=== PATIENT | male | born 1990 | race Caucasian/White ===

== ENCOUNTER 2023-06-09 09:50 | Emergency (ER) | payer MEDICAID, SELFPAY ==
[2023-06-09 09:55] VITALS: PULSE 88; RESP 16; TEMP 37.2; O2SAT 95; BMI 41.8
--- NOTE | 2023-06-09 10:04 | XR_ITS ---
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 CLINICAL INDICATION: 32 years Male CP FINDINGS: The cardiomediastinal silhouette and pulmonary vasculature are within normal limits. The lungs are clear. There is no evidence of pleural effusion or pneumothorax. XR/XR chest 1V IMPRESSION: Chest radiograph is within normal limits. Electronically authenticated by: KELVIN DELGADO Date: 06/09/2023 10:43
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
[2023-06-09 12:23] VITALS: BP 142/96; PULSE 88; RESP 18; O2SAT 95
== END 2023-06-09 12:25 | disposition home or self-care (01) ==
PROVIDERS: Emergency Provider Emergency Medicine
DX: J18.9 Pneumonia, unspecified organism (principal)
CPT/HCPCS: 71045; 71260; 94667; 99284; Q9967

== ENCOUNTER 2023-06-27 09:26 | Outpatient (OUT) | payer MEDICAID, SELFPAY ==
[2023-06-27 11:09] LABS: Valproic Acid 62.2 ug/mL (50.0-100.0)
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
== END 2023-06-27 09:27 | disposition home or self-care (01) ==
DX: G40.309 Generalized idiopathic epilepsy and epileptic syndromes, not intractable, without status epilepticus (principal)
CPT/HCPCS: 36415; 80164

== ENCOUNTER 2024-02-03 14:26 | Emergency (ER) | payer OTHER, MEDICAID, SELFPAY ==
[2024-02-03 14:34] VITALS: BP 150/100; PULSE 77; TEMP 36.9; O2SAT 96; BMI 37.0
--- NOTE | 2024-02-03 14:51 | ED.GENADUL1 ---
HPI HPI - General Adult General Chief complaint: Head Injury Stated complaint: HEADACHE, HIT IN HEAD WITH OBJECT Time Seen by Provider: 02/03/24 14:40 Source: patient Mode of arrival: walk-in Limitations: no limitations History of Present Illness HPI narrative: 33-year-old male to the emergency department with chief complaint of headache, fatigue, nausea. Patient reports that the symptoms started after he was struck in the head with a propane tank today at work while trying to set it up on a rack. He did not lose consciousness. No vision changes. No numbness, weakness, tingling. He reports severe headache which is worsened throughout the day. He reports fatigue. Nausea. The symptoms been worsening. He reports that he feels like he is not himself. No blood thinners. No neck pain. No other injuries. Related Data Home Medications ?Medication ?Instructions ?Recorded ?Confirmed divalproex 250 mg tablet,extended 250 mg PO DAILY 02/03/24 02/03/24 release 24 hr Allergies Allergy/AdvReac Type Severity Reaction Status Date / Time No Known Drug Allergies Allergy Verified 06/09/23 09:59 Opioid HPI Opioid Management Most Recent Opioid Data: Last Pain Scale 8 06/09/23 10:02 Review of Systems ROS Status of ROS 10 or more systems reviewed and unremarkable except as noted in history and below PFSH [facility] Social History Smoking status: Never smoker Exam Narrative Exam Narrative: VITALS: I have reviewed the triage vital signs. GENERAL: Well developed, well appearing adult in no acute distress. NEURO: Alert and oriented x4. Moves all extremities. Face is symmetric and expressive. Cranial nerves II through XII grossly intact as tested. Muscular strength and sensation grossly intact upper and lower extremities bilaterally. No dysarthria. No aphasia. No ataxia. Normal gait. NIHSS 0. EYES: PERRL. No scleral icterus or conjunctival injection. No discharge. HENT: Normocephalic, atraumatic. Hearing is grossly intact. Nares grossly patent and without discharge. Mucous membranes moist. NECK: No JVD. Patient moves neck without restriction. CARDIO: Rhythm regular. Normal rate. No murmur, rub, or gallop. Pulses equal bilaterally in the upper and lower extremity. No lower extremity edema. PULM: Lungs clear to auscultation in all wang. No wheezes, rales, or rhonchi. No conversational dyspnea. No splinting, stridor, or accessory muscle use. GI/: Abdomen is soft and non-tender. Normoactive bowel sounds. EXTREMITIES: Symmetric muscle bulk. No joint swelling. No clubbing, cyanosis, or deformity. SKIN: Warm and dry. Normal turgor. No rash or lesions appreciated. PSYCH: Mood, affect, and interaction is appropriate to the setting. Constitutional Vital Signs, click to edit/add: Last Vital Signs Temp 98.4 F 02/03/24 14:34 Pulse 77 02/03/24 14:34 Resp 18 02/03/24 14:34 BP 150/100 H 02/03/24 14:34 Pulse Ox 96 02/03/24 14:34 O2 Del Method Room Air 02/03/24 14:34 Course Vital Signs Vital signs: Vital Signs Temperature 98.4 F 02/03/24 14:34 Pulse Rate 77 02/03/24 14:34 Respiratory Rate 18 02/03/24 14:34 Blood Pressure 150/100 H 02/03/24 14:34 Pulse Oximetry 96 02/03/24 14:34 Oxygen Delivery Method Room Air 02/03/24 14:34 Temperature 98.4 F 02/03/24 14:34 Pulse Rate 77 02/03/24 14:34 Respiratory Rate 18 02/03/24 14:34 Blood Pressure 150/100 H 02/03/24 14:34 Pulse Oximetry 96 02/03/24 14:34 Oxygen Delivery Method Room Air 02/03/24 14:34 Medical Decision Making MDM Narrative Medical decision making narrative: 33-year-old male to the emergency department severe headache after head injury. Vital stable, the patient is afebrile. Neurologic examination is nonfocal. CT scan is ordered. He declines medications. [facility] #415 - Emergency Medicine: Utilization of CT for Minor Blunt Head Trauma (Adult) [x] Patient is 18 or older, presenting with minor blunt head trauma. Head CT (including cosigned orders) was ordered by an emergency manager critical care for trauma because (select one or more): [SATISFIES MIPS PERFORMANCE] Reasons: [x] Patient has severe headache Discharge Plan Discharge Stand Alone Forms: Portal Instructions Chief Complaint: Head Injury Clinical Impression: Concussion without loss of consciousness Patient Disposition: Home, Self-Care Condition: Good Mode of Transportation: Private Vehicle Prescriptions / Home Meds: No Action divalproex 250 mg tablet extended release 24 hr 250 mg PO DAILY Print Language: Citizen Of [place] Instructions: Concussion (ED) Additional Instructions: Follow-up with occupational health Call the office of your primary care doctor to arrange for follow-up within the above-stated timeframe. Your ED visit was focused on your acute issue and does not replace primary care. You should review your labs, imaging, and diagnoses from this ED visit with your primary care physician. There may be non-emergent/ incidental findings that need further evaluation. You should review your vital signs including blood pressure with your PCP. If you were prescribed medications you should discuss possible side-effects and drug interactions with your pharmacist. Call 911 or go to the nearest Emergency Department if you develop any new or worsening symptoms. Seek immediate medical attention if you develop: new or worsening headache, nausea, vomiting, confusion, weakness, loss of motion in your arms or legs, loss of control of your urine or stool, difficulty waking from sleep, or any new or worsening symptoms. Referrals: Physician,Non-Staff, MD [Primary Care Provider] - 1 week
--- NOTE | 2024-02-03 15:22 | CT_ITS ---
[address] [address] Patient Name: DIMITRIS DORADO MRN: [id number] date: 1990 Sex: M Assigned Patient Location: ER Current Patient Location: ED.[facility] Accession/Order Number: [id number] Exam Date: 02/03/2024 15:15 Report Date: 02/03/2024 15:56 At the request of: DANY UREÑA Procedure: CT head/brain wo con EXAM: CT head/brain wo con HISTORY: head injury COMPARISON: None. TECHNIQUE: Axial CT scans through the head were obtained without IV contrast administration. Dose reduction techniques were achieved by using: automated exposure control and/or adjustment of mA and /or kV according to patient size and/or use of iterative reconstruction technique. FINDINGS: There is no acute intracranial hemorrhage or abnormal extra-axial fluid collection. No mass effect or midline shift is seen. There is no evidence of large acute territorial infarction. There is no hydrocephalus. To the limit of CT, the posterior fossa appears unremarkable. The calvaria and extra cranial soft tissues are unremarkable. The visualized orbits show no abnormality. The visualized paranasal sinuses show no air-fluid level. Mastoid air cells are clear. CT/CT head/brain wo con IMPRESSION: No acute intracranial process. Electronically authenticated by: CINDY MCCULLOUGH Date: 02/03/2024 15:56
[2024-02-03 15:32] VITALS: BP 142/86; PULSE 86; O2SAT 98
== END 2024-02-03 16:11 | disposition home or self-care (01) ==
PROVIDERS: Emergency Provider Student in an Organized Health Care Education/Training Program
DX: S06.0X0A Concussion without loss of consciousness, initial encounter (principal); W22.8XXA Striking against or struck by other objects, initial encounter
CPT/HCPCS: 70450; 99284

== ENCOUNTER 2024-11-18 09:35 | Emergency (ER) | payer BC, MEDICAID, SELFPAY ==
[2024-11-18 09:40] VITALS: BP 158/97; PULSE 67; TEMP 36.8; O2SAT 99; BMI 32.8
--- NOTE | 2024-11-18 09:59 | ED.GENADUL1 ---
HPI HPI - General Adult General Chief complaint: Urogenital-Male Stated complaint: pain in groin area Time Seen by Provider: 11/18/24 09:45 Source: patient Mode of arrival: walk-in Limitations: no limitations History of Present Illness HPI narrative: Patient presents to ED complaining of left inguinal pain. Patient states it started about a month ago when he had a bad cough from an upper respiratory infection. He said it has been on and off since then and he can feel a lump there. He said usually he can push the lump back in but recently for about the past 5 days he cannot push it back in as well and it seems to come back out more frequently. He does have tenderness there and it is worse with up and walking around and in lifting. No fevers no vomiting. Patient states he does not have any testicular pain or upper abdominal pain. He just has the left inguinal pain where you can feel the possible hernia. No history of hernia Related Data Home Medications ?Medication ?Instructions ?Recorded ?Confirmed No Known Home Medications 11/18/24 11/18/24 Allergies Allergy/AdvReac Type Severity Reaction Status Date / Time No Known Drug Allergies Allergy Verified 06/09/23 09:59 Opioid HPI Opioid Management Most Recent Opioid Data: Last Pain Scale 8 06/09/23, 10:02 Review of Systems ROS Status of ROS 10 or more systems reviewed and unremarkable except as noted in history and below [facility] Social History Smoking status: Never smoker Little interest or pleasure in doing things: not at all Feeling down, depressed, or hopeless: not at all Exam Narrative Exam Narrative: General: alert, no acute distress Cardiovascular: regular rate and rhythm, normal peripheral perfusion. Respiratory: Lungs CTA, respirations non labored. Extremities: no deformity, no trauma. Neurological: oriented x 4, LOC appropriate for age. Abdomen soft nontender nondistended. Patient does have a palpable small hernia felt in the left inguinal area that is reducible. Does cause pain when reducing and it does come back out as soon as the patient stands up. No testicular pain normal external genitalia Constitutional Vital Signs, click to edit/add: Last Vital Signs Temp 98.2 F 11/18/24 09:40 Pulse 66 11/18/24 11:14 Resp 16 11/18/24 11:14 BP 133/85 11/18/24 11:14 Pulse Ox 99 11/18/24 11:14 O2 Del Method Room Air 11/18/24 09:40 Course Vital Signs Vital signs: Vital Signs Temperature 98.2 F 11/18/24 09:40 Pulse Rate 67 11/18/24 09:40 Respiratory Rate 18 11/18/24 09:40 Blood Pressure 158/97 H 11/18/24 09:40 Pulse Oximetry 99 11/18/24 09:40 Oxygen Delivery Method Room Air 11/18/24 09:40 Temperature 98.2 F 11/18/24 09:40 Pulse Rate 66 11/18/24 11:14 Respiratory Rate 16 11/18/24 11:14 Blood Pressure 133/85 11/18/24 11:14 Pulse Oximetry 99 11/18/24 11:14 Oxygen Delivery Method Room Air 11/18/24 09:40 Medical Decision Making MDM Narrative Medical decision making narrative: Patient's labs are negative for acute. He does not have any UTI symptoms. His CT scan shows a fat-containing inguinal hernia on the left. I called and spoke to Dr. Isabel who agrees with outpatient follow-up. I told the patient to call the office today to schedule close follow-up. Return to ED if worsening symptoms severe pain vomiting severe constipation or any other concerns. Patient is comfortable with care plan for home. Differential Diagnosis Differential Diagnosis: Hernia, bowel obstruction Lab Data Lab results reviewed: Yes I reviewed the patient's lab results Labs: Lab Results 11/18/24 11/18/24 Range/Units 10:09 10:23 WBC 6.9 (4.0-11.0) 10^3/uL RBC 5.23 (4.70-6.10) 10^6/uL Hgb 16.9 (14.0-18.0) g/dL Hct 46.8 (42.0-54.0) % MCV 89.5 (80.0-94.0) fL MCH 32.3 (25.9-34.0) pg MCHC 36.1 H (29.9-35.2) g/dL RDW 12.0 (11.0-15.0) % Plt Count 355 (150-450) 10^3/uL MPV 9.7 (9.5-13.5) fL Neut % (Auto) 57.6 (43.0-75.0) % Lymph % (Auto) 31.3 (20.5-60.0) % [place] % (Auto) 8.2 (1.7-12.0) % Eos % (Auto) 2.0 (0.9-7.0) % Baso % (Auto) 0.6 (0.2-2.0) % Neut # (Auto) 4.0 (1.4-6.5) 10^3/uL Lymph # (Auto) 2.2 (1.2-3.8) 10^3/uL [place] # (Auto) 0.6 (0.3-0.8) 10^3/uL Eos # (Auto) 0.1 (0.0-0.7) 10^3/uL Baso # (Auto) 0.0 (0.0-0.1) 10^3/uL Abs Immat Gran (auto) 0.02 (0.00-0.03) 10^3/uL Imm/Tot Granulo (auto) 0.3 (0.0-0.5) % Sodium 141 (136-145) mmol/L Potassium 4.0 (3.5-5.1) mmol/L Chloride 102 (98-107) mmol/L Carbon Dioxide 29.1 (21.0-32.0) mmol/L Anion Gap 13.9 BUN 13.0 (7.0-18.0) mg/dL Creatinine 0.58 L (0.70-1.30) mg/dL Est GFR ( Amer) >60 (>=60 mL/min/1.73m^2) Est GFR (Non-Af Amer) >60 (>=60 mL/min/1.73m^2) BUN/Creatinine Ratio 22.4 Glucose 85 (74-106) mg/dL Lactate 1.2 (0.4-2.0) mmol/L Calcium 9.3 (8.5-10.1) mg/dL Total Bilirubin 0.5 (0.2-1.0) mg/dL AST 17 (15-37) U/L ALT 28 (16-63) U/L Alkaline Phosphatase 46 (46-116) U/L Total Protein 7.4 (6.4-8.2) g/dL Albumin 3.8 (3.4-5.0) g/dL Globulin 3.6 g/dL Albumin/Globulin Ratio 1.1 Urine Color Yellow (YELLOW) Urine Clarity Clear (CLEAR) Urine pH 7.0 (5.0-9.0) Ur Specific Grace 1.015 (1.005-1.025) Urine Protein Negative (NEG/TRACE) mg/dL Urine Glucose (UA) Negative (NEGATIVE) mg/dL Urine Ketones 15 A (NEGATIVE) mg/dL Urine Occult Blood Negative (NEGATIVE) Urine Nitrite Negative (NEGATIVE) Urine Bilirubin Negative (NEGATIVE) Urine Urobilinogen 2.0 A (0.2-1.0) EU/dL Ur Leukocyte Esterase Negative (NEGATIVE) Urine RBC 0-2 (0-2) #/HPF Urine WBC 2-5 A (NONE SEEN) #/HPF Ur Squamous Epith Cells Rare (NONE/RARE) #/LPF Urine Crystals None seen (None Seen) #/HPF Urine Bacteria Trace A (NONE SEEN) #/HPF Urine Casts None seen (NONE SEEN) #/LPF Urine Mucus Moderate A (NONE SEEN) Ur Culture Indicated? No Discharge Plan Discharge Chief Complaint: Urogenital-Male Clinical Impression: Inguinal hernia Patient Disposition: Home, Self-Care Time of Disposition Decision: 11:24 Condition: Good Mode of Transportation: Private Vehicle Prescriptions / Home Meds: No Action No Known Home Medications Print Language: Bulgarian Instructions: Inguinal Hernia (ED) Additional Instructions: F/U with general surgery and with your family doctor Referrals: Huang Lane MD [Physician, General Surgery] - 1 week Physician,Non-Staff, [Primary Care Provider] - 1 week
[2024-11-18 10:30] LABS: Basophils Percent Auto 0.6 % (0.2-2.0); Eosinophils Absolute Auto 0.1 10^3/uL (0.0-0.7); Hematocrit 46.8 % (42.0-54.0); Hemoglobin 16.9 g/dL (14.0-18.0); Immature Granulocytes Abs Auto 0.02 10^3/uL (0.00-0.03); Immature Granulocytes Pct Auto 0.3 % (0.0-0.5); Lymphocytes Absolute Auto 2.2 10^3/uL (1.2-3.8); Lymphocytes Percent Auto 31.3 % (20.5-60.0); Mean Corpuscular HGB Conc 36.1 g/dL (29.9-35.2); Mean Corpuscular Hemoglobin 32.3 pg (25.9-34.0); Mean Corpuscular Volume 89.5 fL (80.0-94.0); Mean Platelet Volume 9.7 fL (9.5-13.5); Monocytes Absolute Auto 0.6 10^3/uL (0.3-0.8); Monocytes Percent Auto 8.2 % (1.7-12.0); Neutrophils Percent Auto 57.6 % (43.0-75.0); Platelet Count 355 10^3/uL (150-450); Red Blood Count 5.23 10^6/uL (4.70-6.10); White Blood Count 6.9 10^3/uL (4.0-11.0)
[2024-11-18 10:32] LABS: Bilirubin Urine NEGATIVE (NEGATIVE); Blood Urine NEGATIVE (NEGATIVE); Clarity Urine CLEAR (CLEAR); Color Urine YELLOW (YELLOW); Glucose Urine UA NEGATIVE (NEGATIVE); Ketones Urine 15 mg/dL (NEGATIVE); Leukocyte Esterase Urine NEGATIVE (NEGATIVE); Nitrite Urine NEGATIVE (NEGATIVE); Protein Urine NEGATIVE (NEG/TRACE); Specific Gravity Urine 1.015 (1.005-1.025)
[2024-11-18 10:49] LABS: RBC Urine 0-2 #/HPF (0-2)
[2024-11-18 10:50] LABS: Bacteria Urine TRACE #/HPF (NONE SEEN); Cast Seen? NONE SEEN #/LPF (NONE SEEN); Crystals Seen? None Seen #/HPF (None Seen); Mucus Urine MODERATE (NONE SEEN); Squamous Epithelial Cell Urine RARE #/LPF (NONE/RARE); Urine Culture Indicated NO
[2024-11-18 10:51] LABS: Lactate/Lactic Acid 1.2 mmol/L (0.4-2.0)
[2024-11-18 10:57] LABS: Alanine Aminotransferase 28 U/L (16-63); Albumin Globulin Ratio 1.1; Albumin Level 3.8 g/dL (3.4-5.0); Alkaline Phosphatase 46 U/L (46-116); Anion Gap 13.9; Aspartate Amino Transferase 17 U/L (15-37); BUN Creatinine Ratio 22.4; Bilirubin Total 0.5 mg/dL (0.2-1.0); Calcium 9.3 mg/dL (8.5-10.1); Carbon Dioxide 29.1 mmol/L (21.0-32.0); Chloride 102 mmol/L (98-107); Estimated GFR (African America >60 (>=60 mL/min/1.73m^2); Estimated GFR (Non-African Ame >60 (>=60 mL/min/1.73m^2); Globulin 3.6 g/dL; Glucose 85 mg/dL (74-106); Sodium 141 mmol/L (136-145); Total Protein 7.4 g/dL (6.4-8.2)
[2024-11-18 11:14] VITALS: BP 133/85; PULSE 66; O2SAT 99
== END 2024-11-18 11:42 | disposition home or self-care (01) ==
PROVIDERS: Emergency Provider Emergency Medicine
DX: K40.90 Unilateral inguinal hernia, without obstruction or gangrene, not specified as recurrent (principal)
CPT/HCPCS: 36415; 74177; 80053; 81001; 83605; 85025; 99284; Q9967

== ENCOUNTER 2024-11-30 12:21 | Outpatient (OUT) | payer BC, MEDICAID, SELFPAY | END 2024-11-30 12:22 | disposition home or self-care (01) | LOC: PST 12:22 | PROVIDERS: Visit Provider Surgery | DX: Z01.818 Encounter for other preprocedural examination (principal); K40.90 Unilateral inguinal hernia, without obstruction or gangrene, not specified as recurrent ==

== ENCOUNTER 2024-12-09 07:06 | Day surgery (SDC) | payer BC, MEDICAID, SELFPAY ==
--- OUTSIDE RECORDS SUMMARY | 2024-04-21 05:05 | XMS_ITS | Encounter Summary ---
Author Name [facility] [facility] [place] Address [address] [place] [id number] Care Team Providers Care Fancy Wire Drawer Name Role Phone LA WITT Primary Care Provider Unavailluis e Insurance Providers: All historical and current Section Date Range: From patient's date of to the date document was created. This section includes the names of all active insurance providers for the patient. Insurance Provider Type of Coverage Plan Name Start of Policy Coverage End of Policy Coverage Group Number Member ID Insurance Provider's Telephone Number Policy Ling's Name Patient's Relationship to Policy Ling MEDICAID (WNR) MEDICAID MEDIC AID Oct 20, 2022 MEDICAI D [id number] Kerline DORADO PATIENT Selected Encounter This section includes the information on record at [place] for the Encounter. Date/Time Encounter Type Encounter Description Reason Provider Source Apr 21, 2024 09:05 AM QNHP OL DIG ASSMT&MGMT 11-20 CLINICAL PHARMACY ICD-10-CM E66.9 Obesity, unspecified LUIS CARLOS FOSTER Encounter Template Text not used by [place] Assessments - Encounter Diagnoses This section includes the primary and secondary diagnoses documented for the Encounter. Date/Time Primary/Secondary Diagnosis Diagnosis Name Provider Source Apr 21, 2024 09:13 AM PRIMARY Obesity, unspecified LUIS CARLOS FOSTER [facility] Plan of Treatment: Future Appointments (+ 6 months) and Future Tests (+/- 45 days) The Plan of Treatment section includes future care activities for the patient from all [facility] treatment[facility]ilities. This section includes future appointments and future orders which are active, pending or scheduled. Future Appointments This section includes appointments that were scheduled to occur 6 months from the date of the Encounter, up to a maximum of 20 appointments. The data comes from all [place] treatment facilities. Appointment Date/Time Appointment Type Appointme nt Facility Name Apr 27, 2024 08:00 AM AMBULATORY - NONE [facility] Jun 22, 2024 01:00 PM AMBULATORY - NEUROLOGY [facility] Jun 29, 2024 08:00 AM AMBULATORY - NONE [facility] Jun 29, 2024 09:15 AM AMBULATORY - NONE [facility] Sep 16, 2024 09:00 AM AMBULATORY - NONE [facility] Sep 25, 2024 08:00 AM AMBULATORY - NONE [facility] Oct 19, 2024 04:15 PM AMBULATORY - NONE [facility] Lab Results: +/- 30 days of the encounter This section includes the Chemistry and Hematology Lab Results on record with [facility] for the patient. Radiology Reports and Pathology Reports are provided separately, in subsequent sections. Lab Results This section contains the Chemistry/Hematology Results that were resulted 30 days before or 30 daysafter the date of the Encounter. Date/Time Source Result Type Result - Unit Interpretation Reference Range Specimen Type Comment Apr 27, 2024 08:05 AM [facility] URINALYSIS URINE Specimen Type: URINE No comment entered. Ordering Provider: LA WITT Report Released Date/Time: May 01, 2023 08:58 AM Reporting Lab: [address] [address] Performing Lab: [address] [address] SPECIFIC GRAVITY >1.035 H 1.016-1.022 URINE GLUCOSE Negative mg/dL Negative URINE PROTEIN 20 mg/dL Negative URINE PH 6.0 5.0-8.0 WBC/HPF 1 /[HPF] <=4 RBC/HPF 1 /[HPF] <=4 NITRITE, URINE Negative Negative ESTERASE(WBC) Negative Negative URINE CLARITY Clear Clear URINE MUCUS Present H Negative URINE BILIRUBIN Negative mg/dL <=0.4 URINE BLOOD Negative mg/dL <0.05 UROBILINOGEN 4 mg/dL H <=1 URINE KETONES 10 mg/dL H <=9 URINE COLOR Yellow [none] Apr 27, 2024 08:05 AM [facility] COMPREHENSIVE METABOLIC PANEL PLASMA S pecimen Type: PLASMA Comment: DLDLREF RANGE: NEAR OR ABOVE OPTIMAL: 100-129 mg/dL BORDERLINE DLDLHIGH: 130-159 mg/dL HIGH: 160-189 mg/dL VERY HIGH: >=190 TRIG REF RANGE: BORDERLINE HIGH: 150-199 mg/dL HIGH: 200-499 mg/dL TRIG VERY HIGH: >=500 mg/dL CREA eGFR was calculated using the CKD-EPI 2020 equation. CHOL REF RANGE: BORDERLINE HIGH: 200-239 mg/dL HIGH: >=240 mg/dL Ordering Provider: LA WITT Report Released Date/Time: May 01, 2023 08:58 AM Reporting Lab: [address] [address] Performing Lab: [address] [address] ALBUMIN 4.3 g/dL 3.5-5.2 ALKALINE PHOSPHATASE 36 U/L L 40-150 ALT/SGPT 39 U/L <55 AST/SGOT 27 U/L 5-34 BUN 11 mg/dL 8.9-20.6 CALCIUM 8.7 mg/dL 8.4-10.2 CREATININE 0.8 mg/dL 0.72-1.25 CO2 26 mmol/L 22-29 GLUCOSE 103 mg/dL H 74-100 PROTEIN, TOTAL 7.2 g/dL 6.4-8.3 SODIUM 140 mmol/L 136-145 CHLORIDE 103 mmol/L 98-107 BILIRUBIN, TOTAL 0.6 mg/dL 0.2-1.2 POTASSIUM 4.2 mmol/L 3.5-5.1 ANION GAP 15.2 mmol/L 10-20 EGFR (CALCULATED) 119.0 mL/min Apr 27, 2024 08:05 AM [facility] VALPROIC ACID PLASMA Specimen Type: P LASMA Comment: DLDLREF RANGE: NEAR OR ABOVE OPTIMAL: 100-129 mg/dL BORDERLINE DLDLHIGH: 130-159 mg/dL HIGH: 160-189 mg/dL VERY HIGH: >=190 TRIG REF RANGE: BORDERLINE HIGH: 150-199 mg/dL HIGH: 200-499 mg/dL TRIG VERY HIGH: >=500 mg/dL CREA eGFR was calculated using the CKD-EPI 2020 equation. CHOL REF RANGE: BORDERLINE HIGH: 200-239 mg/dL HIGH: >=240 mg/dL Ordering Provider: LA WITT Report Released Date/Time: May 01, 2023 08:58 AM Reporting Lab: [address] [address] Performing Lab: [address] [address] VALPROIC ACID 113.9 ug/mL H 50.0-100.0 Apr 27, 2024 08:05 AM [facility] LIPID PROFILE PLASMA Specimen Type: P LASMA Comment: DLDLREF RANGE: NEAR OR ABOVE OPTIMAL: 100-129 mg/dL BORDERLINE DLDLHIGH: 130-159 mg/dL HIGH: 160-189 mg/dL VERY HIGH: >=190 TRIG REF RANGE: BORDERLINE HIGH: 150-199 mg/dL HIGH: 200-499 mg/dL TRIG VERY HIGH: >=500 mg/dL CREA eGFR was calculated using the CKD-EPI 2020 equation. CHOL REF RANGE: BORDERLINE HIGH: 200-239 mg/dL HIGH: >=240 mg/dL Ordering Provider: LA WITT Report Released Date/Time: May 01, 2023 08:58 AM Reporting Lab: [address] [address] Performing Lab: [address] [address] CHOLESTEROL 184 mg/dL <199 LDL CHOLESTEROL 158 mg/dL H <99 HDL CHOLESTEROL 33 mg/dL L >60 TRIGLYCERIDE 99 mg/dL <149 Apr 27, 2024 08:05 AM [facility] HEMOGLOBIN A1C BLOOD Specimen Type: B LOOD Comment: Values obtained from A1C measurements can vary. For typical A1C assays, a reported value of 7.0 could actually be between 6.72 and 7.28 if measured by a reference method. A reported value of 9.0 could actually be between 8.73 and 9.27. Ref: http://www.ngsp.org/CAPdata.asp Ordering Provider: LA WITT Report Released Date/Time: May 01, 2023 08:58 AM Reporting Lab: [address] [address] Performing Lab: [address] [address] HEMOGLOBIN A1C 4.8 3.6-5.7 Apr 27, 2024 08:05 AM [facility] CBC BLOOD Specimen Type: BLOOD No comment entered. Ordering Provider: LA WITT Report Released Date/Time: May 01, 2023 08:58 AM Reporting Lab: [facility] [address] [facility] [address] Performing Lab: [address] [address] WBC COUNT 6.5 10*3/uL 3.6-11.0 RBC COUNT 5.15 10*6/uL 4.47-5.83 HGB 16.2 g/dL 13.6-17.4 HCT 48.1 40.0-51.0 MCV 93.4 fL 80.0-96.0 MCH 31.5 pg H 27.0-31.0 MCHC 33.8 g/dL 31.5-36.5 PLT 348 10*3/uL 150-400 LYMPHS % 48.8 21.0-51.0 MONOCYTES % 5.2 4.0-8.0 NUCLEATED RBC/100WBC 0.2 /100{WBCs} RDW 13.3 11.2-15.8 NEUTROPHIL % 42.8 L 54.0-78.0 EOSINOPHIL % 2.9 0.0-3.0 BASOPHIL % 0.3 0.0-3.0 ABSOLUTE LYMPHOCYTE COUNT 3.2 10*3/uL 0. 8-5.0 ABSOLUTE NEUTROPHIL COUNT 2.8 10*3/uL 1. 9-8.6 ABSOLUTE BASOPHIL COUNT 0.0 10*3/uL 0.0- 0.3 ABSOLUTE MONOCYTE COUNT 0.3 10*3/uL 0.1- 0.9 ABSOLUTE EOSINOPHIL COUNT 0.2 10*3/uL 0. 0-0.3 MPV 8.3 fL 7.4-11.4 Encounter Notes: All associated encounter notes This section contains the clinical notes associated to the Encounter. Date/Time Encounter Note(s) Provider Source Apr 21, 2024 09:05 AM PHARMACY CONSULT: LOCAL TITLE: PRIOR AUTHORIZATION DRUG REQUEST CONSULT NOTE (C) STANDARD TITLE: PHARMACY CONSULT DATE OF NOTE: APR 21, 2024@09:05 ENTRY DATE: APR 21, 2024@09:05:53 AUTHOR: LUIS CARLOS FOSTER EXP COSIGNER: URGENCY: STATUS: COMPLETED 3. Denied, specify alternative The medical record has been reviewed with regard to this prior authorization drug request. This prior authorization drug request originated with a [facility] provider. Medication requested: SEMAGLUTIDE WL 1MG/0.5ML PEN 0.5ML Medication indication: obesity Medical history relevant to this request: Mr. Dorado was referred to Endocrinology services for weight loss management. They have been active in [facility] [employer] and their current weight/BMI is [270 lbs/37.7]. CC OVN [04/18/24] in [facility] was reviewed, and provider plan is to start Wegovy. Currently Wegovy is being approved for use in veterans who meet both general VA CFU and tiered criteria 1 and 2a per [place] [employer] guidance. General CFU: The answers to ALL of the following must be fulfilled in order to meet criteria for semaglutide (WEGOVY). {X} Verifiable participation in a comprehensive lifestyle intervention (CLI) that targets all three aspects of weight management: diet, physical activity, behavioral changes {X} BMI is greater than or equal to 30 kg/m2 OR BMI is greater than or equal to 27 kg/m2 with at least one weight-related comorbidity Additional Inclusion Criteria - In addition to meeting the above two inclusion criteria, the answer to ONE of the following must be fulfilled to meet criteria for semaglutide (WEGOVY). {X} One or more [place] National Formulary agents for chronic weight management at therapeutic or maximally tolerated doses are documented to be not tolerated, not adequate (e.g., < 5 % reduction body weight), or medically inadvisable (with rationale) Per December note, 30 minutes spent in patient education counseling on the phentermine as patient is on Depakote and Mar note Wegovy 0.5 mg once a week has lost 7 pounds over 3 months wants to increase the dose BMI 37 { } BMI greater than or equal to 40 { } BMI 35 to < 40 with a significant or difficult to manage weight-related condition or is unable to achieve weight loss goals required for surgery { } BMI 27 to < 40 with previous myocardial infarction, previous stroke, or symptomatic peripheral arterial disease { } Type 2 diabetes treated with semaglutide (OZEMPIC) AND requires additional weight loss to achieve >=5% reduction in initial body weight Tiered criteria: { } Tier 1: established cardiovascular disease defined as hx of myocardial infarction, coronary artery disease, stroke hx or symptomatic PAD { } Tier 2: Patients with BMI >35 AND 3 disease related comorbidities or HFpEF only comorb noted is seizure disorder Examples of weight-related conditions include (but are not limited to) hypertension, type 2 diabetes, dyslipidemia, metabolic syndrome, obstructive sleep apnea, osteoarthritis, and metabolic dysfunction-associated steatotic liver disease (MASLD). As patient does not meet tier requirements, denial notice sent to provider with recommendation to consider formulary alternatives: phentermine/topiramate, orlistat (with continued participation of [employer] prgm. The request does not meet criteria - Compelling evidence for the requested indication is lacking Time spent on encounter = 20 minutes /kassandra/ LUIS CARLOS FOSTER, PHARM.D. CLINICAL PHARMACIST Signed: 04/21/2024 09:14 LUIS CARLOS FOSTER [facility]
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
--- OUTSIDE RECORDS SUMMARY | 2024-06-29 04:00 | XMS_ITS | Encounter Summary ---
Author Name [facility] [place] Organization [facility] [place] Address [address] [place] [address] Care Team Providers Care Blueprint Processor Name Role Phone LA WITT Primary Care [...] MEDIC AID Oct 20, 2022 MEDICAI D [id number] Kerline DORADO PATIENT Selected Encounter This section includes the information on record at [place] for the Encounter. Date/Time Encounter Type Encounter Description Reason Provider Source Jun 29, 2024 08:00 AM OFFICE O/P EST MOD 30 MIN PRIMARY CARE/MEDICINE ICD-10-CM Z23 Encounter for immunization SHAQ WITT Encounter Template Text not used by [facility] Assessments - Encounter Diagnoses This section includes the primary and secondary diagnoses documented for the Encounter. Date/Time Primary/Secondary Diagnosis Diagnosis Name Provider Source Jun 29, 2024 08:29 AM PRIMARY Encounter for immunization [facility]EL[facility] MCKENZ[facility] Jun 29, 2024 08:29 AM SECONDARY Obesity, unspecified LA WITT [facility] Jun 29, 2024 08:29 AM SECONDARY Other seizures LA WITT [facility] Plan of Treatment: Future Appointments (+ 6 months) and Future Tests (+/- 45 days) The Plan of Treatment section includes future care activities for the [facility] This section includes future appointments and future orders which are active, pending or scheduled. Future Appointments This section includes appointments that were scheduled to occur 6 months from the date of the Encounter, up to a maximum of 20 appointments. The data comes from all [place] treatment facilities. Appointment Date/Time Appointment Type Appointme nt Facility Name Sep 16, 2024 09:00 AM AMBULATORY - NONE [facility] Sep 25, 2024 08:00 AM AMBULATORY - NONE [facility] Oct 19, 2024 04:15 PM [facility] Oct 21, 2024 09:00 AM AMBULATORY - NONE [facility] Nov 10, 2024 02:00 PM AMBULATORY - NONE [facility] December 09, 2024 08:30 AM [facility] Dec 23, 2024 08:30 AM AMBULATORY - NONE [facility] Lab Results: +/- 30 days of the encounter This section includes the Chemistry and Hematology Lab Results on record with [place] for the patient. Radiology Reports and Pathology Reports are provided separately, in subsequent sections. Lab Results This section contains the Chemistry/Hematology Results that were resulted 30 days before or 30 daysafter the date of the Encounter. Date/Time Source Result Type Result - Unit Interpretation Reference Range Specimen Type Comment Jun 29, 2024 08:56 AM [facility] VALPROIC ACID PLASMA Specimen Type: PLASMA No comment entered. Ordering Provider: LA WITT Report Released Date/Time: Jun 29, 2024 08:35 AM Reporting Lab: [facility] [id number] [facility] [id number] Performing Lab: [facility] [id number] [place] [id number] VALPROIC ACID 90.1 ug/mL 50.0-100.0 Immunizations: All administered on the encounter date This section contains immunizations associated to the Encounter. Immunization Series Date Issued Administered By Site Reaction Lot Number CVX Code Drug Rn Recruitment Comment(s) Source COVID-19 (PFIZER), MRNA, LNP-S, PF, KENNETH-SUCROSE, 30 MCG/0.3 ML (AGES 12+ YEARS) Jun 29, 2024 CORI MCKENZIE C RIGHT DELTO ID [id number] PFIZER, INC AD[facility]ISTERE D [facility] [place], [facility] INFLUENZA, SPLIT VIRUS, TRIVALENT, PF Jun 29, 2024 CORI MCKENZIE C LEFT DELTO ID [id number] GLAXOSMITHKLI NE ADMINISTERE D AT [place], [facility] Social History: Smoking Status (Most current) and Tobacco Use (All prior to encounter date) This section includes the most current, and the historical, smoking and tobacco- related health factors from the [place] facility where the Encounter took place. Current Smoking Status This section includes the most current smoking, or tobacco-related health factor, from the [place] facility where the Encounter took place. Date/Time Current Smoking Status Comment Facil ity Jun 29, 2024 08:00 AM VA-TOBACCO USE FORMER CIGARETTES [facility] Tobacco Use History This section includes a history of the smoking, or tobacco-related health factors, that were collected on or before the date of the Encounter. The data comes from the [place] facility where the Encounter took place. Date/Time Smoking Status/Tobacco Use Comment F acility Jun 29, 2024 08:00 AM VA-TOBACCO USE FORMER OTHE R TYPE Quit at 17 [facility] May 01, 2023 08:30 AM VA-TOBACCO NEVER USED [facility] Apr 25, 2022 08:30 AM VA-TOBACCO FORMER USER [facility] Apr 25, 2022 08:30 AM VA-TOBACCO QUIT 15 YRS OR MORE [facility] Apr 21, 2021 10:30 AM VA-TOBACCO NEVER USED [facility] Jul 02, 2019 09:57 AM VA-TOBACCO NEVER USED [facility] Encounter Notes: All associated encounter notes This section contains the clinical notes associated to the Encounter. Date/Time Encounter Note(s) Provider Source Jun 29, 2024 08:19 AM INTERNAL MEDICINE OUTPATIENT NOTE: LOCAL TITLE: PRIMARY CARE OUTPATIENT NOTE (T) STANDARD TITLE: INTERNAL MEDICINE OUTPATIENT NOTE DATE OF NOTE: JUN 29, 2024@08:19 ENTRY DATE: JUN 29, 2024@08:19:59 AUTHOR: LA WITT COSIGNER: URGENCY: STATUS: COMPLETED In-person Note 33yo Reason for Visit: Here for annual visit. He saw a virtual neurologist through [place] last week and she would like repeat valproic acid levels. He has lost 40 pounds in the past year which may be why his level was high. He has been on ozempic for weight loss through [facility]. He had his dose increased to 0.75 mg but pharmacy still has it noted as 0.5 mg. 1 Active Problems PROBLEM LAST MOD PROVIDER Seizure 07/17/2019 ANDRES IBARRA REVIEW OF SYSTEMS: (denies the following unless indicated otherwise): mood concerns headache fatigue/weight loss dysphagia/hoarseness chest pain dyspnea abdominal pain difficult or bloody elimination PATIENT ALLERGIES DETAILED ALLERGIES/ADVERSE REACTIONS No Known Allergies AMRS - MEDS (REC SUCCINCT) Active and Recently Inpatient, Outpatient and Clinic Medications (including Supplies): Active Outpatient Medications Status 1) SEMAGLUTIDE 0.25MG/0.375ML INJ PEN 3ML INJECT 0.5MG ACTIVE SUBCUTANEOUSLY EVERY WEEK KEEP REFRIGERATED, HOWEVER, MAY BE KEPT AT ROOM TEMPERATURE FOR UP TO 56 DAYS Inactive Outpatient Medications Status 1) DIVALPROEX 250MG 24HR (ER) SA TAB TAKE TWO TABLETS BY MOUTH EVERY MORNING AND TAKE TWO TABLETS EVERY EVENING AND TAKE ONE TABLET AT BEDTIME FOR 90 DAYS Active Non-VA Medications Status 1) Non-VA DIVALPROEX 250MG EC(DELAYED RELEASE) TAB 250MG ACTIVE MOUTH THREE TIMES A DAY 3 Total Medications Report Released Date/Time: Apr 27, 2024@18:35 Provider: LA WITT Specimen: URINE. [facility] [id number] Specimen Collection Date: Apr 27, 2024@08:05 Test name Result units Ref. range Site Code URINE PH 6.0 5.0 - 8.0 [541] URINE COLOR Yellow Ref: [none] [541] URINE CLARITY Clear Ref: Clear [541] SPECIFIC GRAVITY >1.035 H 1.016 - 1.022 [541] URINE PROTEIN 20 mg/dL Ref: Negative [541] URINE GLUCOSE Negative mg/dL Ref: Negative [541] URINE KETONES 10 H mg/dL Ref: <=9 [541] URINE BILIRUBIN Negative mg/dL Ref: <=0.4 [541] UROBILINOGEN 4 H mg/dL Ref: <=1 [541] URINE BLOOD Negative mg/dL Ref: <=0.05 [541] ESTERASE(WBC) Negative Allie/uL Ref: Negative [541] NITRITE, URINE Negative Ref: Negative [541] RBC/HPF 1 /HPF Ref: <=4 [541] WBC/HPF 1 /HPF Ref: <=4 [541] URINE MUCUS Present H Ref: Negative [541] Report Released Date/Time: Apr 27, 2024@18:25 Provider: LA WITT Specimen: BLOOD. [facility] [id number] Specimen Collection Date: Apr 27, 2024@08:00 Test name Result units Ref. range Site Code HEMOGLOBIN A1C 4.8 % 3.6 - 5.7 [541] Eval: Values obtained from A1C measurements can vary. For typical A1C assays, a Eval: reported value of 7.0 could actually be between 6.72 and 7.28 if measured Eval: by a reference method. A reported value of 9.0 could actually be between Eval: 8.73 and 9.27. Ref: https://ngsp.org/CAPdata.asp WBC COUNT 6.5 K/cmm 3.6 - 11.0 [541] RBC COUNT 5.15 M/cmm 4.47 - 5.83 [541] HGB 16.2 g/dL 13.6 - 17.4 [541] HCT 48.1 % 40.0 - 51.0 [541] MCV 93.4 fL 80.0 - 96.0 [541] MCH 31.5 H pg 27.0 - 31.0 [541] MCHC 33.8 g/dL 31.5 - 36.5 [541] RDW 13.3 % 11.2 - 15.8 [541] PLT 348 K/cmm 150 - 400 [541] MPV 8.3 fL 7.4 - 11.4 [541] NEUTROPHIL % 42.8 L % 54.0 - 78.0 [541] LYMPHS % 48.8 % 21.0 - 51.0 [541] MONOCYTES % 5.2 % 4.0 - 8.0 [541] EOSINOPHIL % 2.9 % 0.0 - 3.0 [541] BASOPHIL % 0.3 % 0.0 - 3.0 [541] ABSOLUTE NEUTROPHIL COUNT 2.8 K/cmm 1.9 - 8.6 [541] ABSOLUTE LYMPHOCYTE COUNT 3.2 K/cmm 0.8 - 5.0 [541] ABSOLUTE MONOCYTE COUNT 0.3 K/cmm 0.1 - 0.9 [541] ABSOLUTE EOSINOPHIL COUNT 0.2 K/cmm 0.0 - 0.3 [541] ABSOLUTE BASOPHIL COUNT 0.0 K/cmm 0.0 - 0.3 [541] NUCLEATED RBC/100WBC 0.2 /100 WBC None Established - None Established [541] Comment: Values obtained from A1C measurements can vary. For typical A1C assays, a reported value of 7.0 could actually be between 6.72 and 7.28 if measured by a reference method. A reported value of 9.0 could actually be between 8.73 and 9.27. Ref: http://www.ngsp.org/CAPdata.as p Report Released Date/Time: Apr 27, 2024@19:35 Provider: LA WITT Specimen: PLASMA. [facility] 1007 [id number] Specimen Collection Date: Apr 27, 2024@08:00 Test name Result units Ref. range Site Code GLUCOSE 103 H mg/dL 74 - 100 [541] Eval: REFERENCE RANGE CHANGED FOR GLU ON 01.29.24 SODIUM 140 mmol/L 136 - 145 [541] Eval: REFERENCE RANGE CHANGED ON 01.29.24 POTASSIUM 4.2 mmol/L 3.5 - 5.1 [541] CHLORIDE 103 mmol/L 98 - 107 [541] CO2 26 mmol/L 22 - 29 [541] BUN 11 mg/dL 8.9 - 20.6 [541] CREATININE 0.8 mg/dL 0.72 - 1.25 [541] Eval: REFERENCE RANGES CHANGED FOR CREAT ON 04.19.24 CALCIUM 8.7 mg/dL 8.4 - 10.2 [541] EGFR (CALCULATED) 119.0 mL/min [541] Eval: eGFR results >60 are imprecise. Many variables affect the calculated Eval: result. Interpretation of eGFR results >60 must be monitored Eval: over time. ANION GAP 15.2 mmol/L 10 - 20 [541] AST/SGOT 27 U/L 5 - 34 [541] Eval: REFERENCE RANGE CHANGED FOR AST ON 02.14.24 ALT/SGPT 39 U/L Ref: <=55 [541] Eval: REFERENCE RANGE CHANGED FOR ALT ON 02.14.24 ALKALINE PHOSPHATASE 36 L U/L 40 - 150 [541] BILIRUBIN, TOTAL 0.6 mg/dL 0.2 - 1.2 [541] Eval: REFERENCE RANGE CHANGED FOR TBIL ON 01.29.24 PROTEIN, TOTAL 7.2 g/dL 6.4 - 8.3 [541] ALBUMIN 4.3 g/dL 3.5 - 5.2 [541] CHOLESTEROL 184 mg/dL Ref: <=199 [541] LDL CHOLESTEROL 158 H mg/dL Ref: <=99 [541] HDL CHOLESTEROL 33 L mg/dL Ref: >=60 [541] TRIGLYCERIDE 99 mg/dL Ref: <=149 [541] VALPROIC ACID 113.9 H ug/mL 50 - 100 [541] Comment: DLDLREF RANGE: NEAR OR ABOVE OPTIMAL: 100-129 mg/dL BORDERLINE DLDLHIGH: 130-159 mg/dL HIGH: 160-189 mg/dL VERY HIGH: >=190 TRIG REF RANGE: BORDERLINE HIGH: 150-199 mg/dL HIGH: 200-499 mg/dL TRIG VERY HIGH: >=500 mg/dL CREA eGFR was calculated using the CKD-EPI 2020 equation. CHOL REF RANGE: BORDERLINE HIGH: 200-239 mg/dL HIGH: >=240 mg/dL PHYSICAL EXAM: Vital Signs: T: 98.4 F [36.9 C] (06/29/2024 08:16) P: 75 (06/29/2024 08:16) R: 18 (06/29/2024 08:16) BP: 132/84 (06/29/2024 08:16) Pain: 0 (06/29/2024 08:18) Height: 71 in [180.3 cm] (06/29/2024 08:13) Weight: 274.6 lb [124.56 kg] (06/29/2024 08:16) Pulse Ox: 95% (06/29/2024 08:16) General: appears well Head, Ears, Eyes, Nose, and Throat: Neck: Chest/Lungs: CTA Cardiovascular: RRR Gastrointestinal: Extremities: no edema ASSESSMENT/PLAN: reviewed labs with cholesterol has been improving with weight loss A1C is under 5% repeat valproic acid for neurology in [place]. he has had no seizures, no noticeable effect from elevated valproic acid. request [facility] pharmacy to increase ozempic dose HEALTH MAINTENANCE/CLINICAL REMINDERS: MEDICATION RECONCILIATION Medication Reconciliation report reviewed and discussed with patient/caregiver. VA prescription medications, non-VA prescription medications, OTC and herbal medications reviewed: Patient/caregiver verifies that the list is complete and accurate and voices understanding. Patient/caregiver in possession of printed medication list. FOLLOW-UP: 1 year or as needed I am the Staff Provider. /kassandra/ LA WITT NURSE PRACTITIONER Signed: 06/29/2024 09:38 LA WITT CB Jun 29, 2024 08:10 AM PRIMARY CARE NURSI NG NOTE: LOCAL TITLE: OUTPATIENT NURSING INTAKE NOTE (T) STANDARD TITLE: PRIMARY CARE NURSING NOTE DATE OF NOTE: JUN 29, 2024@08:10 ENTRY DATE: JUN 29, 2024@08:10:09 AUTHOR: RADHA MCKENZIE EXP COSIGNER: URGENCY: STATUS: COMPLETED OUTPATIENT NURSING INTAKE NOTE (T) Has ADDENDA Hemoglobin A1C Results: Collection DT Specimen Test Name Result Units Ref Range 04/27/2024 08:00 BLOOD HEMOGLOBIN A1C 4.8 % 3.6 - 5.7 Comment: Values obtained from A1C measurements can vary. For typical A1C Comment: assays, a reported value of 7.0 could actually be between 6.72 and Comment: 7.28 if measured by a reference method. A reported value of 9.0 Comment: could actually be between 8.73 and 9.27. Ref: Comment: http://www.ngsp.org/CAPdata.as p 04/22/2023 09:56 BLOOD HEMOGLOBIN A1C 5.2 % 3.6 - 5.7 Comment: Values obtained from A1C measurements can vary. For typical A1C Comment: assays, a reported value of 7.0 could actually be between 6.72 and Comment: 7.28 if measured by a reference method. A reported value of 9.0 Comment: could actually be between 8.73 and 9.27. Ref: Comment: http://www.ngsp.org/CAPdata.as p 04/25/2022 09:17 BLOOD HEMOGLOBIN A1C 5.3 % 3.6 - 5.7 Review Allergies Allergies reviewed and updated per protocol. ALLERGIES/ADVERSE REACTIONS No Known Allergies MEDICATION LIST REVIEW REPORT Patient's Active Medications were reviewed at this visit. Patient states not taking any OTC/Herbals at this visit. PATIENT EDUCATION LEARNING NEEDS ASSESSMENT: I. Learning Preference: Hands-on Group Class II. Barriers to Learning: Visual Limitations : glasses Hearing Limitations : Bilateral hearing loss III. Social Influences Related to Educational Needs: No social barriers to learning IV. Readiness to Learn: Patient Appears ready to learn. 1. Has the patient been feeling sad or distressed? No 2. Has the patient been having personal or family problems? No 3. Has the patient been experiencing worry and/or stress? No 4. Has the patient been having problems with drugs and/or alcohol? No 5. Crisis Line pocket card was provided to patient. Yes [facility] ([place] [place], [employer]) What matters most to you? Comment: My Family Clinical Reminders Activity Advance Directive Education Screen: Patient received information regarding Advance Directives: Yes - Patient has been given information/education regarding Advance Directives. Patient advised to follow up with Social Work Service. Level of Understanding: Good Alcohol Use Screen (AUDIT-C): Alcohol Screen: SCREEN FOR ALCOHOL (AUDIT-C) An alcohol screening test (AUDIT-C) was negative (score=1). 1. How often did you have a drink containing alcohol in the past year? Consider a drink to be a 12 ounce can or bottle of regular beer, 8 ounces of malt liquor, a 5 ounce glass of table wine, or a 1.5 ounce shot of liquor (like scotch, gin, or vodka). Monthly or less 2. How many drinks containing alcohol did you have on a typical day when you were drinking in the past year? One or two drinks 3. How often did you have six or more drinks on one occasion in the past year? Never BMI Screening: At this visit, the health risks of obesity were reviewed and discussed with the patient, and the benefits of a weight management treatment program, such as MOVE! was discussed and offered to the patient. Height: Height: 71 in [180.3 cm) Weight: Weight: 274.6 lb (124.8 kg) Patient is already enrolled/actively participating in MOVE program. Depression Screening: Perform PHQ-2 A PHQ-2 screen was performed. The score was 0 which is a negative screen for depression. Over the past two weeks, how often have you been bothered by the following problems? 1. Little interest or pleasure in doing things Not at all 2. Feeling down, depressed, or hopeless Not at all Homelessness/Food Insecurity Screen: In the past 2 months, have you been living in stable housing that you own, rent, or stay in as part of a household? Yes - Living in stable housing. Are you worried or concerned that in the next 2 months you may NOT have stable housing that you own, rent, or stay in as part of a household? No - Not worried about housing near future The reports the following: Within the past 12 months, you worried whether your food would run out before you got money to buy more. Never true Within the past 12 months, the food you bought just didn't last and you didn't have money to get more. Never true PTSD Screening: PC-PTSD-5 A PTSD screening test (PC-PTSD-5) was negative (score=0). IN THE PAST MONTH, have you ever had any experience that was so frightening, horrible or traumatic. For example: A serious accident or fire a physical or sexual assault or abuse An earthquake or flood A war Seeing someone be killed or seriously injured Having a loved one through homicide or suicide 1. Have you ever experienced this kind of event? NO 2. Had nightmares about the event(s) or thought about the event(s) when you did not want to? Response not required due to responses to other questions. 3. Tried hard not to think about the event(s) or went out of your way to avoid situations that reminded you of the event(s)? Response not required due to responses to other questions. 4. Been constantly on guard, watchful, or easily startled? Response not required due to responses to other questions. 5. [place] numb or detached from people, activities, or your surroundings? Response not required due to responses to other questions. 6. [place] guilty or unable to stop blaming yourself or others for the event(s) or any problems the event(s) may have caused? Response not required due to responses to other questions. Suicide Screen: C-SSRS Screening [place] Suicide Severity Rating Scale (C-SSRS) screener 1. Over the past month, have you wished you were or wished you could go to sleep and not wake up? No 2. Over the past month, have you had any actual thoughts of killing yourself? No 3. Over the past month, have you been thinking about how you might do this? Response not required due to responses to other questions. 4. Over the past month, have you had these thoughts and had some intention of acting on them? Response not required due to responses to other questions. 5. Over the past month, have you started to work out or worked out the details of how to kill yourself? Response not required due to responses to other questions. 6. If yes, at any time in the past month did you intend to carry out this plan? Response not required due to responses to other questions. 7. In your lifetime, have you ever done anything, started to do anything, or prepared to do anything to end your life (for example, collected pills, obtained a gun, gave away valuables, went to the roof but didn't jump)? No 8. If YES, was this within the past 3 months? Response not required due to responses to other questions. Tobacco Use Screening: The patient is a former cigarette smoker. The patient formerly used other types of tobacco. Comment: Quit at 17 /es/ RADHA MCKENZIE REGISTERED NURSE Signed: 06/29/2024 08:16 06/29/2024 ADDENDUM STATUS: COMPLETED Clinical Reminders Activity COVID-19 Immunization: Pfizer Monovalent (Comirnaty) Administered: COVID-19 (PFIZER), MRNA, LNP-S, PF, KENNETH-SUCROSE, 30 MCG/0.3 ML (AGES 12+ YEARS) Date Administered: Jun 29, 2024 08:00 Rn Recruitment: [employer] Lot: [id number] Exp Date: Oct 20, 2024 ND: [id number] Admin Route/Site: INTRAMUSCULAR/RIGHT DELTOID Dosage: 0.3mL Vaccine Information Statement(s): COVID-19 MRNA VACCINE (12+ YRS) VIS May 07, 2024 ([place]) Order By: Policy Administered By: Radha Mckenzie Vaccine administered without complications. Influenza Immunization: Influenza, Standard-Dose, Trivalent, Preservative Free (Fluarix-Syringe) Administered: INFLUENZA, SPLIT VIRUS, TRIVALENT, PF Date Administered: Jun 29, 2024 08:00 Rn Recruitment: [employer] Lot: [id number] Exp Date: Jan 18, 2025 [facility]: [id number] Admin Route/Site: INTRAMUSCULAR/LEFT DELTOID Dosage: 0.5mL Vaccine Information Statement(s): INFLUENZA(FLU) VACC(INACTIVATED OR RECOMBINANT)VIS Feb 24, 2021 ([place]) Order By: Policy Administered By: Radha Mckenzie The Influenza Vaccine Information Statement (VIS) was reviewed with the patient/caregiver which lists the benefits and risks of the vaccine and the risks of not receiving the Influenza vaccine. The patient/caregiver denied any prior severe reaction to this vaccine or its components or a severe allergic reaction, such as anaphylaxis, to any vaccine or any injectable therapy. The patient/caregiver gave verbal consent to receive the vaccine. /kassandra/ RADHA MCKENZIE REGISTERED NURSE Signed: 06/29/2024 08:30 RADHA MCKENZIE CB
--- OUTSIDE RECORDS SUMMARY | 2024-07-24 13:31 | XMS_ITS | Encounter Summary ---
Author Name [facility] [place] Organization [facility] [place] Address [address] [place] [address] Care Team Providers Care Tar Chaser Name Role Phone LA WITT Primary Care [...] MEDIC AID Oct 20, 2022 MEDICAI D [id number] Kerline DORADO PATIENT Selected Encounter This section includes the information on record at [place] for the Encounter. Date/Time Encounter Type Encounter Description Reason Provider Source Jul 24, 2024 05:31 PM OFF/OP CNSLTJ NEW/EST LOW 30 CLINICAL PHARMACY ICD-10-CM Z79.899 Other exterminator helper termite (current) drug therapy ADRIENNE GARCIA Leila Encounter Template Text not used by [place] Assessments - Encounter Diagnoses This section includes the primary and secondary diagnoses documented for the Encounter. Date/Time Primary/Secondary Diagnosis Diagnosis Name Provider Source Jul 24, 2024 05:39 PM PRIMARY Other exterminator helper termite (current) drug therapy ADRIENNE GARCIA [facility] Plan of Treatment: Future Appointments [...] 20 appointments. The data comes from all [place] treatment facilities. Appointment Date/Time Appointment Type Appointme nt Facility Name Sep 16, 2024 09:00 AM AMBULATORY - NONE [facility] Sep 25, 2024 08:00 AM AMBULATORY - NONE [facility] Oct 19, 2024 04:15 PM AMBULATORY - NONE [facility] Oct 21, 2024 09:00 [facility] Nov 10, 2024 02:00 PM [facility] December 09, 2024 08:30 AM [facility] Dec 23, 2024 08:30 AM AMBULATORY - NONE [facility] Lab Results: +/- 30 days of the encounter This section includes the Chemistry and Hematology Lab Results on record with [place] for the patient. Radiology Reports and Pathology Reports are provided separately, in subsequent sections. Lab Results This section contains the Chemistry/Hematology Results that were resulted 30 days before or 30 daysafter the date of the Encounter. Date/Time Source Result Type Result - Unit Interpretation Reference Range Specimen Type Comment Jun 29, 2024 08:56 AM [facility] VALPROIC ACID PLASMA Specimen Type: PLASMA No comment entered. Ordering Provider: LA WITT Report Released Date/Time: Jun 29, 2024 08:35 AM Reporting Lab: [address] [id number] Performing Lab: [address] [address] VALPROIC ACID 90.1 ug/mL 50.0-100.0 Encounter Notes: All associated encounter notes This section contains the clinical notes associated to the Encounter. Date/Time Encounter Note(s) Provider Source Aug 12, 2024 09:31 AM ADDENDUM: LOCAL TITLE: Addendum STANDARD TITLE: ADDENDUM DATE OF NOTE: AUG 12, 2024@09:31:02 ENTRY DATE: AUG 12, 2024@09:31:03 AUTHOR: ZAKI MENDEZ EXP COSIGNER: URGENCY: STATUS: COMPLETED Author re-reviewed above. Ozempic was denied 04/2024, however prescription went through and patient has been on medication and following [facility] for weight management. Author called patient to review: -->Will approve Wegovy x 6 months -->Need to complete MOVE involvement, or future RXs for Wegovy will be denied -->With titration of Wegovy if weight loss is not seen, medication will not be approved for future fills. Attn [facility]-can you obtain RX for Wegovy 1 mg as patient is not a DM and alert us to approve/track? /es/ ZAKI MENDEZ SUPERVISORY PHARMACIST Signed: 08/12/2024 09:36 Receipt Acknowledged By: 08/12/2024 16:04 /es/ ADRIENNE GARCIA CLINICAL PHARMACIST 08/20/2024 10:56 /es/ SHANIQUE WINN SUPERVISORY PHARMACIST --- Original Document --- 07/24/24 PHARMACY OUTPATIENT NOTE (T): Non-VA Care Pharmacy Note Pharmacy received the following prescriptions from an outside provider: ERX ERX PROVIDER Name: RENE KERNSNT Clinic: [facility] Address: [address] [place] [address] Tel: [phone] Fax: [phone] 1. Date Written : 07/24/24 eRx Drug : Semaglutide (1 MG/DOSE) 4 MG/3ML Solution Pen-injector (OZEMPIC) eRx SIG : Inject 1 mg into the skin every 7 days Qty: 3 Days Supply: Refills: 3 The patient is eligible for community care/outsourced prescriptions, however, the medication is NOT on the formulary and will need to be reviewed by a Clinical Pharmacist Specialist prior to dispensing to the patient. See previous Denial for: Semaglutide (Wegovy) DATE OF NOTE: APR 21, 2024 AUTHOR: LUIS CARLOS FOSTER EXP COSIGNER: URGENCY: STATUS: COMPLETED 3. Denied, specify alternative The medical record has been reviewed with regard to this prior authorization drug request. This prior authorization drug request originated with a Community Care provider. Medication requested: SEMAGLUTIDE WL 1MG/0.5ML PEN 0.5ML Medication indication: obesity /es/ ADRIENNE GARCIA CLINICAL PHARMACIST Signed: 07/24/2024 17:39 Receipt Acknowledged By: 2024 08:54 /es/ KENDRA TRONCOSO SUPERVISORY PHARMACIST 2024 08:55 /es/ ZAKI MENDEZ SUPERVISORY PHARMACIST 07/28/2024 07:39 /es/ MEME MUNIZ, JINNYD, [facility] 2024 08:11 /es/ FERNY CORRAL CLINICAL SNUBBER 2024 ADDENDUM STATUS: COMPLETED Ozempic(semaglutide) used for treatment of diabetes, and patient is not a diabetic. Wegovy(semaglutide) denial still stands as patient does not meet our scarce allocation of wegovy. Wegovy scarce allocation criteria: >>> [ ]ASCVD or >>> [ ]HF or >>>[] BMI >/=40 + 3 weight related comorbidities: [] prediabetes, [] HTN, [] KALLI, [] metabolic syndrome, [] osteoarthritis, [] MASLD, [] DLD Patient does not currently meet [place] scarce allocation criteria for semaglutide (Wegovy) approval. Please consider an alternative therapy: Phentermine/topiramate- Phentermine- Bupropion/Naltrexone- Contrave not available, can order in individual components Orlistat Alerting [facility] PharmD for communication of the above /kassandra/ ZAKI MENDEZ SUPERVISORY PHARMACIST Signed: 2024 08:02 Receipt Acknowledged By: 07/28/2024 13:08 /es/ ADRIENNE GARCIA CLINICAL PHARMACIST 07/28/2024 16:06 /es/ SHANIQUE WINN SUPERVISORY PHARMACIST 07/28/2024 ADDENDUM STATUS: COMPLETED An Ozempic denial fax containing the above information was sent to Dr. Kerns's attention to fax number [phone] on 07.28.24 at 4:07pm. /kassandra/ SHANIQUE WINN SUPERVISORY PHARMACIST Signed: 07/28/2024 16:08 08/12/2024 ADDENDUM STATUS: COMPLETED Fax sent to non-va provider /kassandra/ ADRIENNE GARCIA CLINICAL PHARMACIST Signed: 08/12/2024 16:05 ZAKI MENDEZ [facility] 2024 07:59 AM ADDENDUM: LOCAL TITLE: Addendum STANDARD TITLE: ADDENDUM DATE OF NOTE: 2024@07:59:40 ENTRY DATE: 2024@07:59:41 AUTHOR: ZAKI MENDEZ EXP COSIGNER: URGENCY: STATUS: COMPLETED Ozempic(semaglutide) used for treatment of diabetes, and patient is not a diabetic. Wegovy(semaglutide) denial still stands as patient does not meet our scarce allocation of wegovy. Wegovy scarce allocation criteria: >>> [ ]ASCVD or >>> [ ]HF or >>>[] BMI >/=40 + 3 weight related comorbidities: [] prediabetes, [] HTN, [] KALLI, [] metabolic syndrome, [] osteoarthritis, [] MASLD, [] DLD Patient does not currently meet [place] scarce allocation criteria for semaglutide (Wegovy) approval. Please consider an alternative therapy: Phentermine/topiramate- Phentermine- Bupropion/Naltrexone- Contrave not available, can order in individual components Orlistat Alerting [facility] PharmD for communication of the above /kassandra/ ZAKI MENDEZ SUPERVISORY PHARMACIST Signed: 2024 08:02 Receipt Acknowledged By: 07/28/2024 13:08 /kassandra/ ADRIENNE GARCIA CLINICAL PHARMACIST 07/28/2024 16:06 /kassandra/ SHANIQUE WINN SUPERVISORY PHARMACIST --- Original Document --- 07/24/24 PHARMACY OUTPATIENT NOTE (T): Non-VA Care Pharmacy Note Pharmacy received the following prescriptions from an outside provider: ERX ERX PROVIDER Name: FERCHO KERNS Clinic: [facility] Address: [address] [place] [address] Tel: [phone] Fax: [phone] 1. Date Written : 07/24/24 eRx Drug : Semaglutide (1 MG/DOSE) 4 MG/3ML Solution Pen-injector (OZEMPIC) eRx SIG : Inject 1 mg into the skin every 7 days Qty: 3 Days Supply: Refills: 3 The patient is eligible for community care/outsourced prescriptions, however, the medication is NOT on the formulary and will need to be reviewed by a Clinical Pharmacist Specialist prior to dispensing to the patient. See previous Denial for: Semaglutide (Wegovy) DATE OF NOTE: APR 21, 2024 AUTHOR: LUIS CARLOS FOSTER EXP COSIGNER: URGENCY: STATUS: COMPLETED 3. Denied, specify alternative The medical record has been reviewed with regard to this prior authorization drug request. This prior authorization drug request originated with a Community Care provider. Medication requested: SEMAGLUTIDE WL 1MG/0.5ML PEN 0.5ML Medication indication: obesity /es/ ADRIENNE GARCIA CLINICAL PHARMACIST Signed: 07/24/2024 17:39 Receipt Acknowledged By: 2024 08:54 /es/ KENDRA TRONCOSO SUPERVISORY PHARMACIST 2024 08:55 /es/ ZAKI MENDEZ SUPERVISORY PHARMACIST 07/28/2024 07:39 /es/ MEME MUNZI [facility] [place] [facility] 2024 08:11 /kassandra/ FERNY CORRAL CLINICAL SNUBBER ZAKI MENDEZ CBDAY Jul 24, 2024 05:31 PM PHARMACY NOTE: LOCAL TITLE: PHARMACY OUTPATIENT NOTE (T) STANDARD TITLE: PHARMACY NOTE DATE OF NOTE: JUL 24, 2024@17:31 ENTRY DATE: JUL 24, 2024@17:31:48 AUTHOR: ADRIENNE GARCIA EXP COSIGNER: URGENCY: STATUS: COMPLETED PHARMACY OUTPATIENT NOTE (T) Has ADDENDA Non-VA Care Pharmacy Note Pharmacy received the following prescriptions from an outside provider: ERX ERX PROVIDER Name: YAMILEFERCHO Clinic: [facility] Address: [address] [place] [address] Tel: [phone] Fax: [phone] 1. Date Written : 07/24/24 eRx Drug : Semaglutide (1 MG/DOSE) 4 MG/3ML Solution Pen-injector (OZEMPIC) eRx SIG : Inject 1 mg into the skin every 7 days Qty: 3 Days Supply: Refills: 3 The patient is eligible for community care/outsourced prescriptions, however, the medication is NOT on the formulary and will need to be reviewed by a Clinical Pharmacist Specialist prior to dispensing to the patient. See previous Denial for: Semaglutide (Wegovy) DATE OF NOTE: APR 21, 2024 AUTHOR: LUIS CARLOS FOSTER EXP COSIGNER: URGENCY: STATUS: COMPLETED 3. Denied, specify alternative The medical record has been reviewed with regard to this prior authorization drug request. This prior authorization drug request originated with a Community Care provider. Medication requested: SEMAGLUTIDE WL 1MG/0.5ML PEN 0.5ML Medication indication: obesity /es/ ADRIENNE GARCIA CLINICAL PHARMACIST Signed: 07/24/2024 17:39 Receipt Acknowledged By: 2024 08:54 /es/ KENDRA TRONCOSO SUPERVISORY PHARMACIST 2024 08:55 /es/ ZAKI MENDEZ SUPERVISORY PHARMACIST 07/28/2024 07:39 /es/ MEME MUNIZ, [place]MD, [facility] 2024 08:11 /es/ FERNY CORRAL CLINICAL SNUBBER 2024 ADDENDUM STATUS: COMPLETED Ozempic(semaglutide) used for treatment of diabetes, and patient is not a diabetic. Wegovy(semaglutide) denial still stands as patient does not meet our scarce allocation of wegovy. Wegovy scarce allocation criteria: >>> [ ]ASCVD or >>> [ ]HF or >>>[] BMI >/=40 + 3 weight related comorbidities: [] prediabetes, [] HTN, [] KALLI, [] metabolic syndrome, [] osteoarthritis, [] MASLD, [] DLD Patient does not currently meet [facility] scarce allocation criteria for semaglutide (Wegovy) approval. Please consider an alternative therapy: Phentermine/topiramate- Phentermine- Bupropion/Naltrexone- Contrave not available, can order in individual components Orlistat Alerting [facility] PharmD for communication of the above /mary MENDEZ SUPERVISORY PHARMACIST Signed: 2024 08:02 Receipt Acknowledged By: 07/28/2024 13:08 /kassandra/ ADRIENNE GARCIA CLINICAL PHARMACIST 07/28/2024 16:06 /mary WINN SUPERVISORY PHARMACIST 07/28/2024 ADDENDUM STATUS: COMPLETED An Ozempic denial fax containing the above information was sent to Dr. Kerns's attention to fax number [phone] on 07.28.24 at 4:07pm. /mary WINN SUPERVISORY PHARMACIST Signed: 07/28/2024 16:08 08/12/2024 ADDENDUM STATUS: COMPLETED Author re-reviewed above. Ozempic was denied 04/2024, however prescription went through and patient has been on medication and following [facility] for weight management. Author called patient to review: -->Will approve Wegovy x 6 months -->Need to complete MOVE involvement, or future RXs for Wegovy will be denied -->With titration of Wegovy if weight loss is not seen, medication will not be approved for future fills. Attn [facility]-can you obtain RX for Wegovy 1 mg as patient is not a DM and alert us to approve/track? /mary MENDEZ SUPERVISORY PHARMACIST Signed: 08/12/2024 09:36 Receipt Acknowledged By: 08/12/2024 16:04 /kassandra/ ADRIENNE GARCIA CLINICAL PHARMACIST 08/20/2024 10:56 /mary WINN SUPERVISORY PHARMACIST 08/12/2024 ADDENDUM STATUS: COMPLETED Fax sent to non-va provider /kassandra/ ADRIENNE GARCIA CLINICAL PHARMACIST Signed: 08/12/2024 16:05 08/20/2024 ADDENDUM STATUS: COMPLETED Called Dr. Kerns's office and spoke to Carmen who stated she would get the message to Dr. Kerns about the change from semaglutide (Ozempic) to semaglutide (Wegovy) on 08.20.24 at 10:55am. /kassandra/ SHANIQUE WINN SUPERVISORY PHARMACIST Signed: 08/20/2024 10:59 [facility]
--- OUTSIDE RECORDS SUMMARY | 2024-11-24 23:59 | XMS_ITS | Continuity of Care Document ---
Author Organization [facility] [place] Address [address] [place] [address] [place] [address] Care Team Providers Care Diesel Engine Mechanic Name Role Phone NONE, XXXX Primary Care Physician Unavailab le Encounter [email or web address] [id number] Date(s): 11/24/24 - 11/24/24 [facility] [place] [address], [address], [place], [place] [address] Encounter Diagnosis Reducible right inguinal hernia(Discharge Diagnosis) - 11/24/24 Discharge Disposition: Home (Routine DC) Attending Physician: Huang LIVE MD Encounter Type: Clinic Allergies, Adverse Reactions, Alerts No Known Allergies Functional Status 11/24/24 Symptomatic After Exposure to Contagion No Symptomatic After Travel High-Risk Area No Droplet, Contact Isolation Verification N/A Airborne,Contact Isolation Verification N/A Immunizations Given and Recorded Vaccine Date Status Refusal Reason influenza virus vaccine, inactivated 06/29/24 John rded SARS-CoV-2 (COVID-19) mRNA BNT-162b2 vax 04/21/21 Recorded SARS-CoV-2 (COVID-19) mRNA BNT-162b2 vax 10/18/20 Recorded SARS-CoV-2 (COVID-19) mRNA BNT-162b2 vax 09/27/20 Recorded Medications divalproex sodium 250 mg Oral EC Tab See Instructions, 500mg BID and 250mg once daily, Refills(s) 0 Start Date: 07/17/19 Status: Ordered Repeat number: 1 phentermine 37.5 mg Tab 37.5 mg = 1 tab(s), Oral, Daily, 30 EA, 0 Refill(s), TAKE 1 TABLET BY MOUTH IN THE MORNING BEFORE BREAKFAST, Refills(s) 0 Start Date: 11/20/24 Status: Ordered Repeat number: 1 semaglutide 1 mg/0.5 mL (1 mg dose) subcutaneous solution 1 mg, SubCutaneous, qWeek, SUBCUTANEOUS, 4 Refill(s), Refills(s) 0 Start Date: 08/19/24 Status: Ordered Repeat number: 1 Problem List Condition Confirmation Course Effective Dates Status Health St atus Informant BMI 33.0-33.9,adult Confirmed Active Epilepsy Confirmed Active Obesity due to excess calories Confirmed Active Obstructive sleep apnea of adult Confirmed Active Reducible right inguinal hernia Confirmed Active Procedures Procedure Date Related Diagnosis Body Site Status None Completed Vital Signs Most recent to oldest [Reference Range]: 1 Peripheral Pulse Rate [60-100 bpm] 72 bp m (11/24/24 3:29 PM) Respiratory Rate [14-20 br/min] 16 br/mi n (11/24/24 3:29 PM) Blood Pressure [89-139/59-89 mmHg] 136/9 2mmHg (11/24/24 3:29 PM) Blood Pressure Location Right arm (11/24/24 3:29 PM) Social History Social History Type Response Smoking Status Never (less than 100 in lifetime);Never entered on: 11/24/24 Sex Male Sex Representation Male (finding) Patient Care team information Care Team Personnel Name: NONE, XXXX Position: FT Physician Member Role: Primary Care Physician Address: [facility] Care Team Related Persons Name: ISIAH DORADO Insurance Providers Guarantor name: JEANETH Health Plan Information #: 2 Payer: Medicaid Member Number: [id number] Policy Number: NA Group Number: [employer] Plan Information #: 1 Payer: [employer] Member Number: [id number] Policy Number: NA Group Number: [id number]
[2024-11-30 13:00] VITALS: BP 121/78; PULSE 66; TEMP 36.6; O2SAT 98; BMI 33.6
[2024-12-09] VITALS (13 sets, daily range): BP systolic 124–152; BP diastolic 73–108; PULSE 72–98; TEMP 36.5; O2SAT 93–98; BMI 33.5
--- NOTE | 2024-12-09 | OP_ITS ---
OPERATION DATE: 12/09/2024 PREOPERATIVE DIAGNOSIS: Left inguinal hernia. POSTOPERATIVE DIAGNOSIS: Direct left inguinal hernia, as well as scarring of cremasteric fibers. PROCEDURE: Left inguinal herniorrhaphy with mesh patch insertion. SURGEON: Huang Lane M.D. ANESTHESIA: General endotracheal as well as left sided TAP block per Dr. Richmond. INDICATIONS AND CONSENT: Patient is a 34-year-old male with a several month history of enlarging, symptomatic, reducible left inguinal hernia. Indications, risks, benefits, alternatives of proceeding with herniorrhaphy with mesh insertion were explained extensively to the patient, including the risks of bleeding, infection, scarring, pain, recurrence, nerve injury, testicular injury, blood clot, pulmonary embolus, heart attack, anesthetic complications, need for further surgery or mesh removal. All of his questions were answered. Informed consent was obtained. PROCEDURE: Patient brought to the operating room, placed in the supine position. General anesthesia was induced. Left sided TAP block was performed by Dr. Richmond in the pre/post area. He was prepped and draped in the usual sterile fashion. A left groin incision was then made with the scalpel blade and carried down through subcutaneous tissue using sharp dissection as well as electrocautery. Pierre?s fascia was divided. The external oblique which was attenuated was opened along the direction of its fibers, down through the external inguinal ring. Cord structures were then mobilized and retracted with the Joni drain. There was noted to be direct hernia sac encompassing much of the floor of the inguinal canal. Within the mid cremasteric fibers of the cord, there was noted to be a scarred area. This was excised and sent off to pathology. There was no evidence of indirect sac or significant cord lipoma. The direct hernia was freed up and reduced. The floor of the inguinal canal was then imbricated using interrupted 2-0 Prolene sutures. The wound was irrigated with antibiotic saline. There was good hemostasis. The mesh patch was then placed in the floor of the inguinal canal. The arms were placed around the cord structures. It was secured circumferentially using interrupted 3-0 Vicryl sutures. Care was taken to avoid undue tension on the cord structures. Once this was complete, the wound was irrigated. It should be noted that a branch of the ilioinguinal nerve which was involved in the area of where the mesh would lay was excised and the ends were ligated with 3-0 Vicryl ties. The external oblique was then closed with a running 3-0 Vicryl suture. The subcutaneous tissues were infiltrated with the remaining Exparel solution, approximately 10 mL. Pierre?s fascia was re-approximated with interrupted 3-0 Monocryl suture. The skin was then closed with a running 4-0 subcuticular Monocryl suture and skin glue. Sterile pressure dressing was applied. Sponge and needle counts were correct x2 per nursing personnel. Patient tolerated procedure well, was extubated and sent to recovery room in good condition. CC: Patient?s family physician JESSY
--- OUTSIDE RECORDS SUMMARY | 2024-12-09 07:07 | XMS_ITS | Continuity of Care Document ---
Author Name [facility] Organization [facility] Care Team Providers Care Multiskill Operator Name Role Phone [facility] Unavailable Unavailable Problems Combined list of problems from Department of Defense and Veterans Affairs facilities. It does not include entries that were removed or entered in error. Problem Status Onset Date Problem Type Date of Resolution Comments Source Obesity ([facility] [id number]) Active Condition [facility] Obstructive Sleep Apnea of Adult ([facility] [id number]) Active Condition [facility] Seizure Active Condition [facility] visit for: administrative purpose Inactive Condition [facility] ANTERIOR WALL CHEST PAIN WITH RESPIRATION Active Condition [facility] Patient Counseling: Inquiry & Counseling Inactive Condition [facility] PHARYNGITIS Active Condition [facility] UPPER RESPIRATORY INFECTION Active Condition [facility] NORMAL PRE-EMPLOYMENT SCREENING EXAMINATION Active Condition [facility] Diagnosis: ICD-10-CM E66.9 Obesity, unspecified Active Diagnosis [facility] Diagnosis: ICD-10-CM E66.812 Obesity, class 2 Active Diagnosis [facility] Diagnosis: ICD-10-CM Z68.38 Body mass index [BMI] 38.0-38.9, adult Active Diagnosis [facility] Diagnosis: ICD-10-CM Z79.899 Other intermission coordinator (current) drug therapy Active Diagnosis [facility] Diagnosis: ICD-10-CM Z23 Encounter for immunization Active Diagnosis [facility] Diagnosis: ICD-10-CM 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,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,w/o stat epi Active Diagnosis [facility] Diagnosis: ICD-10-CM Z71.3 Dietary counseling and surveillance Active Diagnosis [facility] Diagnosis: ICD-10-CM Z68.41 Body mass index [BMI] 40.0-44.9, adult Active Diagnosis [facility] Diagnosis: ICD-10-CM G47.33 Obstructive sleep apnea (adult) (pediatric) Active Diagnosis [facility] Diagnosis: ICD-10-CM 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 Medication Details Route Status Patient Instructions Prescription Expires Prescription Number Last Dispense Date Ordering Provider Order Date Order Qty Source DIVALPROEX NA 250MG TAB,EC TAKE ONE TABLET BY MOUTH THREE TIMES A DAY ORAL ACTIVE KARYNA IBARRA ISTOP J 2018 [facility] DIVALPROEX NA 250MG TAB,SA TAKE TWO TABLETS BY MOUTH EVERY MORNING AND TAKE TWO TABLETS EVERY EVENING AND TAKE ONE TABLET AT BEDTIME FOR SEIZURES ORAL ACTIVE 08/06/2025 [id number] ANG ESQUIVEL MD 2024 450 [facility] DIVALPROEX NA 250MG TAB,SA TAKE TWO TABLETS BY MOUTH EVERY MORNING AND TAKE TWO TABLETS EVERY EVENING AND TAKE ONE TABLET AT BEDTIME FOR 90 DAYS ORAL DISCONT INUED 06/30/2025 [id number] ORTIZ WITT 2023 450 [facility] DIVALPROEX NA 250MG TAB,SA TAKE TWO TABLETS BY MOUTH EVERY MORNING AND TAKE TWO TABLETS EVERY EVENING AND TAKE ONE TABLET AT BEDTIME FOR 90 DAYS ORAL DISCONT INUED 05/01/2024 [id number] ORTIZ WITT 2022 450 [facility] divalproex sodium ER (UD) 250 MG PO TB24 TAKE TWO TABLETS BY MOUTH EVERY MORNING AND TAKE TWO TABLETS EVERY EVENING AND TAKE ONE TABLET AT BEDTIME FOR 90 DAYS 05/01/2024 [id number] LA WITT 2023 450 [address] [facility] divalproex sodium ER (UD) 250 MG PO TB24 TAKE TWO TABLETS BY MOUTH EVERY MORNING AND TAKE TWO TABLETS EVERY EVENING AND TAKE ONE TABLET AT BEDTIME FOR 90 DAYS 05/01/2024 [id number] LA WITT 2023 450 [address] [facility] SEMAGLUTIDE 0.25MG/0.37 5ML INJ,SOLN,PE N,3ML INJECT 0.5MG SUBCUTAN EOUSLY EVERY WEEK KEEP REFRIGER ATED, HOWEVER, MAY BE KEPT AT ROOM TEMPERAT URE FOR UP TO 56 DAYS SUBCUT ANEOUS DISCONT INUED 01/13/2025 [id number] 5 YAMILEMISTY Abraham 2023 1 [facility] SEMAGLUTIDE (WT LOSS) 1.7MG/0.75M L INJ,SOLN,PE N,0.75ML INJECT 0.75ML (1.7MG) SUBCUTAN EOUSLY EVERY WEEK -THIS IS AN INCREASE D STRENGTH . SUBCUT ANEOUS ACTIVE 10/06/2025 [id number] MISTY OVALLE 2024 4 [facility] SEMAGLUTIDE (WT LOSS) 1MG/0.5ML INJ,SOLN,PE N,0.5ML INJECT 0.5ML (1MG) SUBCUTAN EOUSLY ONE TIME EVERY WEEK SUBCUT ANEOUS DISCONT INUED 08/21/2025 [id number] 5 MISTY OVALLE 2024 4 [facility] Allergies, Adverse Reactions, Alerts Combined list of allergies from Department of Defense and Veterans Affairs facilities. It does not include entries that were removed or entered in error. Substance Category Reaction Severity Reaction type Status Date Reported Comments Source No Known Allergies Drug allergy (disorder) active 03/02/2008 [facility] Immunizations Combined list of available immunizations from the Department of Defense and Veterans Affairs facilities. Immunization Series Date Given Administered By Site Reaction Lot Number CVX Code Drug Stockbroker Status Comments Source COVID-19 (PFIZER), MRNA, LNP-S, PF, KENNETH-SUCROSE, 30 MCG/0.3 ML (AGES 12+ YEARS) 2023 CORI WRIGHT C RIGHT DELTO ID [id number] 309 complet ed ADMINISTE [place] AT [place], [facility] INFLUENZA, SPLIT VIRUS, TRIVALENT, PF 2023 CORI WRIGHT C LEFT DELTO ID [id number] 140 complet ed ADMINISTE [place] AT [place], [facility] INFLUENZA, INJECTABLE, QUADRIVALENT, PRESERVATIVE FREE 2022 JIM ORTIZ RIGHT DELTO ID [id number] 150 complet ed ADMINISTE [facility] [place], [facility] INFLUENZA, INJECTABLE, QUADRIVALENT, PRESERVATIVE FREE 2021 150 complet ed [facility] TDAP 2021 115 complet ed [facility] COVID-19 (PFIZER), MRNA, LNP-S, PF, 30 MCG/0.3 ML DOSE 3 2020 208 complet ed HISTORICA L INFORMATI ON - FROM OTHER REGISTRY, [facility] INFLUENZA, INJECTABLE, QUADRIVALENT, PRESERVATIVE FREE 3 2020 150 complet ed HISTORICA L INFORMATI ON - FROM OTHER REGISTRY, [facility] COVID-19 (PFIZER), MRNA, LNP-S, PF, 30 MCG/0.3 ML DOSE 2 2020 208 complet ed [facility] COVID-19 (PFIZER), MRNA, LNP-S, PF, 30 MCG/0.3 ML DOSE 1 2020 208 complet ed [facility] TD (ADULT), 5 LF TETANUS TOXOID, PRESERVATIVE FREE, ADSORBED 2018 113 complet ed [facility] IN[facility] ([facility] 2018 88 complet ed gave him a flu shot. [facility] INFLUENZA, INJECTABLE, MDCK, PRESERVATIVE FREE, QUADRIVALENT 2 2017 171 complet ed HISTORICA L INFORMATI ON - FROM OTHER REGISTRY, [facility] INFLUENZA, SEASONAL, INJECTABLE, PRESERVATIVE FREE 1 2016 140 complet ed HISTORICA L INFORMATI ON - FROM OTHER REGISTRY, [facility] INFLUENZA, SPLIT VIRUS, TRIVALENT, PF 1 2014 140 complet ed HISTORICA L INFORMATI ON - FROM OTHER REGISTRY, [facility] TDAP 1 2014 115 complet ed HISTORICA L INFORMATI ON - FROM OTHER REGISTRY, [facility] measles, mumps and rubella virus vaccine 1 2007 [id number] Merck (MSD) complet ed measles, mumps and rubella virus vaccine DoD varicella virus vaccine 1 2007 21 () Not Given varicella virus vaccine DoD hepatitis A vaccine, pediatric dosage, unspecified formulation 1 2007 [id number] 31 smsPREPine (SKB) complet ed hepatitis A vaccine, pediatric dosage, unspecifi ed formulati on [facility] hepatitis B vaccine, unspecified formulation 1 2007 45 () Not Given hepatitis B vaccine, unspecifi ed formulati on [facility] poliovirus vaccine, inactivated 1 2007 [id number] Sanofi Pasteur (PMC) complet ed polioviru s vaccine, inactivat ed DoD influenza virus vaccine, split virus (incl. purified surface antigen)-reti red CODE 2007 [id number] 15 [employer] (SKB) complet ed influenza virus vaccine, split virus (incl. purified surface antigen)- retired CODE DoD meningococcal polysaccharid e (groups A, C, Y and W-135) diphtheria toxoid conjugate vaccine (MCV4P) 1 2007 [id number] Sanofi Pasteur (PMC) complet ed meningoco ccal polysacch aride (groups A, C, Y and W-135) diphtheri a toxoid conjugate vaccine (MCV4P) DoD tetanus toxoid, reduced diphtheria toxoid, and acellular pertu is vaccine, adsorbed 1 2007 [id number] 115 Sanofi Pasteur (PMC) complet ed tetanus toxoid, reduced diphtheri a toxoid, and acellular pertussis vaccine, adsorbed DoD influenza virus vaccine, live, attenuated, for intranasal use 1 2007 111 [employer]. (MED) complet ed influenza virus vaccine, live, attenuate d, for intranasa l use [facility] HEP B, ADOLESCENT OR PEDIATRIC 3 2001 08 complet ed HISTORICA L INFORMATI ON - FROM OTHER REGISTRY, [facility] HEP B, ADOLESCENT OR PEDIATRIC 2 2001 08 complet ed HISTORICA L INFORMATI ON - FROM OTHER REGISTRY, [facility] HEP B, ADOLESCENT OR PEDIATRIC 1 2001 08 complet ed HISTORICA L INFORMATI ON - FROM OTHER REGISTRY, [facility] MMR 2 2001 03 complet ed HISTORICA L INFORMATI ON - FROM OTHER REGISTRY, [facility] DTP 4 1994 complet ed HISTORICA L INFORMATI ON - FROM OTHER REGISTRY, [facility] DTP 3 1994 complet ed HISTORICA L INFORMATI ON - FROM OTHER REGISTRY, [facility] MMR 1 1994 03 complet ed HISTORICA L INFORMATI ON - FROM OTHER REGISTRY, [facility] TRIVALENT OPV 3 1994 02 complet ed HISTORICA L INFORMATI ON - FROM OTHER REGISTRY, [facility] DTP 2 1989 01 complet ed HISTORICA L INFORMATI ON - FROM OTHER REGISTRY, [facility] TRIVALENT OPV 2 1989 02 complet ed HISTORICA L INFORMATI ON - FROM OTHER REGISTRY, [facility] DTP 1 1989 01 complet ed HISTORICA L INFORMATI ON - FROM OTHER REGISTRY, [facility] TRIVALENT OPV 1 1989 02 complet ed HISTORICA L INFORMATI ON - FROM OTHER REGISTRY, [facility] Results Combined list of recent chemistry, hematology and other laboratory results from Department of Defense and Veterans Affairs, ranging from 15 months to all on record, depending upon the facility. Order Name Results Value Reference Range Date Interpretation Specimen Comments Source VALPROIC ACID VALPROATE [MASS/VOLU ME] IN SERUM OR PLASMA 90.1 ug/mL 50.0 - 100.0 06/29 Specimen Type: PLASMA No comment entered. Ordering Provider: BRANDY WITT CCA A Report Released Date/Time: Jun 29, 2024 08:35 AM Reporting Lab: [place] [phone] Performing Lab: [place] [phone] [facility] URINALYS IS SPECIFIC GRAVITY OF URINE >1.035 1.016 - 1.022 04/27 H Specimen Type: URINE No comment entered. Ordering Provider: BRANDY WITT CCA A Report Released Date/Time: May 01, 2023 08:58 AM Reporting Lab: [place] [phone] Performing Lab: [place] [phone] [facility] URINALYS IS GLUCOSE [MASS/VOLU ME] IN URINE BY TEST STRIP Negative mg/dL 04/27 Specimen Type: URINE No comment entered. Ordering Provider: BRANDY WITT CCA A Report Released Date/Time: May 01, 2023 08:58 AM Reporting Lab: [place] [phone] Performing Lab: [place] [phone] [facility] URINALYS IS PROTEIN [MASS/VOLU ME] IN URINE BY TEST STRIP 20 mg/dL 04/27 Specimen Type: URINE No comment entered. Ordering Provider: BRANDY WITT CCA A Report Released Date/Time: May 01, 2023 08:58 AM Reporting Lab: [place] [phone] Performing Lab: [place] [phone] URINALYS IS PH OF URINE BY TEST STRIP 6.0 5.0 - 8.0 04/27 Specimen Type: URINE No comment entered. Ordering Provider: BRANDY WITT CCA A Report Released Date/Time: May 01, 2023 08:58 AM Reporting Lab: [place] [phone] Performing Lab: [place] [phone] URINALYS IS LEUKOCYTES [#/AREA] IN URINE SEDIMENT BY MICROSCOPY HIGH POWER FIELD 1 /[HPF] - 4 04/27 Specimen Type: URINE No comment entered. Ordering Provider: BRANDY WITT CCA A Report Released Date/Time: May 01, 2023 08:58 AM Reporting Lab: [place] [phone] Performing Lab: [place] [phone] URINALYS IS ERYTHROCYT ES [#/AREA] IN URINE SEDIMENT BY MICROSCOPY HIGH POWER FIELD 1 /[HPF] - 4 04/27 Specimen Type: URINE No comment entered. Ordering Provider: BRANDY WITT CCA A Report Released Date/Time: May 01, 2023 08:58 AM Reporting Lab: [place] [phone] Performing Lab: [place] [phone] URINALYS IS NITRITE [PRESENCE] IN URINE BY TEST STRIP Negative 04/27 Specimen Type: URINE No comment entered. Ordering Provider: BRANDY WITT CCA A Report Released Date/Time: May 01, 2023 08:58 AM Reporting Lab: [address] [phone] Performing Lab: [place] [phone] [facility] URINALYS IS LEUKOCYTE ESTERASE [PRESENCE] IN URINE BY TEST STRIP Negative 04/27 Specimen Type: URINE No comment entered. Ordering Provider: BRANDY WITT CCA A Report Released Date/Time: May 01, 2023 08:58 AM Reporting Lab: [address] [address] Performing Lab: [place] [phone] [facility] URINALYS IS CLARITY OF URINE Clear 04/27 Specimen Type: URINE No comment entered. Ordering Provider: BRANDY WITT CCA A Report Released Date/Time: May 01, 2023 08:58 AM Reporting Lab: [place] [phone] Performing Lab: [place] [phone] [place] [address] URINALYS IS MUCUS [PRESENCE] IN URINE SEDIMENT BY LIGHT MICROSCOPY Present 04/27 H Specimen Type: URINE No comment entered. Ordering Provider: BRANDY WITT CCA A Report Released Date/Time: May 01, 2023 08:58 AM Reporting Lab: [address] [phone] Performing Lab: [place] [phone] [facility] URINALYS IS BILIRUBIN. TOTAL [MASS/VOLU ME] IN URINE BY TEST STRIP Negative mg/dL - 0.4 04/27 Specimen Type: URINE No comment entered. Ordering Provider: BRANDY WITT CCA A Report Released Date/Time: May 01, 2023 08:58 AM Reporting Lab: [address] [address] Performing Lab: [place] [phone] [facility] URINALYS IS HEMOGLOBIN [PRESENCE] IN URINE BY TEST STRIP Negative mg/dL <0.05 - 0.05 04/27 Specimen Type: URINE No comment entered. Ordering Provider: BRANDY WITT CCA A Report Released Date/Time: May 01, 2023 08:58 AM Reporting Lab: [place] [phone] Performing Lab: [place] [phone] [place] [address] URINALYS IS UROBILINOG EN [MASS/VOLU ME] IN URINE 4 mg/dL - 1 04/27 H Specimen Type: URINE No comment entered. Ordering Provider: BRANDY WITT CCA Report Released Date/Time: May 01, 2023 08:58 AM Reporting Lab: [place] [phone] Performing Lab: [place] [phone] [place] [address] URINALYS IS KETONES [MASS/VOLU ME] IN URINE BY TEST STRIP 10 mg/dL - 9 04/27 H Specimen Type: URINE No comment entered. Ordering Provider: BRANDY WITT CCA Report Released Date/Time: May 01, 2023 08:58 AM Reporting Lab: [place] [phone] Performing Lab: [place] [phone] URINALYS IS COLOR OF URINE Yellow [none] 04/27 Specimen Type: URINE No comment entered. Ordering Provider: BRANDY WITT CCA Report Released Date/Time: May 01, 2023 08:58 AM Reporting Lab: [place] [phone] Performing Lab: [place] [phone] COMPREHE NSIVE METABOLI C PANEL ALBUMIN [MASS/VOLU ME] IN SERUM OR PLASMA 4.3 g/dL 3.5 - 5.2 04/27 Specimen Type: PLASMA Comment: DLDLREF RANGE: NEAR OR ABOVE OPTIMAL: 100-129 mg/dL BORDERLINE DLDLHIGH: 130-159 mg/dL HIGH: 160-189 mg/dL VERY HIGH: >=190 TRIG REF RANGE: BORDERLINE HIGH: 150-199 mg/dL HIGH: 200-499 mg/dL TRIG VERY HIGH: >=500 mg/dL CREA eGFR was calculated using the CKD-EPI 2020 equation. CHOL REF RANGE: BORDERLINE HIGH: 200-239 mg/dL HIGH: >=240 mg/dL Ordering Provider: BRANDY WITT CCA A Report Released Date/Time: May 01, 2023 08:58 AM Reporting Lab: [place] [phone] Performing Lab: [place] [phone] [facility] COMPREHE NSIVE METABOLI C PANEL ALKALINE PHOSPHATAS E [ENZYMATIC ACTIVITY/V OLUME] IN SERUM OR PLASMA 36 U/L 40 - 150 04/27 L Specimen Type: PLASMA Comment: DLDLREF RANGE: NEAR OR ABOVE OPTIMAL: 100-129 mg/dL BORDERLINE DLDLHIGH: 130-159 mg/dL HIGH: 160-189 mg/dL VERY HIGH: >=190 TRIG REF RANGE: BORDERLINE HIGH: 150-199 mg/dL HIGH: 200-499 mg/dL TRIG VERY HIGH: >=500 mg/dL CREA eGFR was calculated using the CKD-EPI 2020 equation. CHOL REF RANGE: BORDERLINE HIGH: 200-239 mg/dL HIGH: >=240 mg/dL Ordering Provider: BRANDY WITT CCA A Report Released Date/Time: May 01, 2023 08:58 AM Reporting Lab: [place] [phone] Performing Lab: [place] [phone] [place] [address] NSIVE METABOLI C PANEL ALANINE AMINOTRANS FERASE [ENZYMATIC ACTIVITY/V OLUME] IN SERUM OR PLASMA 39 U/L <55 - 55 04/27 Specimen Type: PLASMA Comment: DLDLREF RANGE: NEAR OR ABOVE OPTIMAL: 100-129 mg/dL BORDERLINE DLDLHIGH: 130-159 mg/dL HIGH: 160-189 mg/dL VERY HIGH: >=190 TRIG REF RANGE: BORDERLINE HIGH: 150-199 mg/dL HIGH: 200-499 mg/dL TRIG VERY HIGH: >=500 mg/dL CREA eGFR was calculated using the CKD-EPI 2020 equation. CHOL REF RANGE: BORDERLINE HIGH: 200-239 mg/dL HIGH: >=240 mg/dL Ordering Provider: BRANDY WITT CCA A Report Released Date/Time: May 01, 2023 08:58 AM Reporting Lab: [place] [phone] Performing Lab: [address] [phone] [facility] COMPREHE NSIVE METABOLI C PANEL ASPARTATE AMINOTRANS FERASE [ENZYMATIC ACTIVITY/V OLUME] IN SERUM OR PLASMA 27 U/L 5 - 34 04/27 Specimen Type: PLASMA Comment: DLDLREF RANGE: NEAR OR ABOVE OPTIMAL: 100-129 mg/dL BORDERLINE DLDLHIGH: 130-159 mg/dL HIGH: 160-189 mg/dL VERY HIGH: >=190 TRIG REF RANGE: BORDERLINE HIGH: 150-199 mg/dL HIGH: 200-499 mg/dL TRIG VERY HIGH: >=500 mg/dL CREA eGFR was calculated using the CKD-EPI 2020 equation. CHOL REF RANGE: BORDERLINE HIGH: 200-239 mg/dL HIGH: >=240 mg/dL Ordering Provider: BRANDY WITT CCA Report Released Date/Time: May 01, 2023 08:58 AM Reporting Lab: [place] [phone] Performing Lab: [place] [phone] [place] [address] COMPREHE NSIVE METABOLI C PANEL UREA NITROGEN [MASS/VOLU ME] IN SERUM OR PLASMA 11 mg/dL 8.9 - 20.6 04/27 Specimen Type: PLASMA Comment: DLDLREF RANGE: NEAR OR ABOVE OPTIMAL: 100-129 mg/dL BORDERLINE DLDLHIGH: 130-159 mg/dL HIGH: 160-189 mg/dL VERY HIGH: >=190 TRIG REF RANGE: BORDERLINE HIGH: 150-199 mg/dL HIGH: 200-499 mg/dL TRIG VERY HIGH: >=500 mg/dL CREA eGFR was calculated using the CKD-EPI 2020 equation. CHOL REF RANGE: BORDERLINE HIGH: 200-239 mg/dL HIGH: >=240 mg/dL Ordering Provider: BRANDY WITT CCA A Report Released Date/Time: May 01, 2023 08:58 AM Reporting Lab: [place] [phone] Performing Lab: [place] [phone] [facility] COMPREHE NSIVE METABOLI C PANEL CALCIUM [MASS/VOLU ME] IN SERUM OR PLASMA 8.7 mg/dL 8.4 - 10.2 04/27 Specimen Type: PLASMA Comment: DLDLREF RANGE: NEAR OR ABOVE OPTIMAL: 100-129 mg/dL BORDERLINE DLDLHIGH: 130-159 mg/dL HIGH: 160-189 mg/dL VERY HIGH: >=190 TRIG REF RANGE: BORDERLINE HIGH: 150-199 mg/dL HIGH: 200-499 mg/dL TRIG VERY HIGH: >=500 mg/dL CREA eGFR was calculated using the CKD-EPI 2020 equation. CHOL REF RANGE: BORDERLINE HIGH: 200-239 mg/dL HIGH: >=240 mg/dL Ordering Provider: BRANDY WITT CCA Report Released Date/Time: May 01, 2023 08:58 AM Reporting Lab: [place] [phone] Performing Lab: [place] [phone] [place] [address] COMPREHE NSIVE METABOLI C PANEL CREATININE [MASS/VOLU ME] IN SERUM OR PLASMA 0.8 mg/dL 0.72 - 1.25 04/27 Specimen Type: PLASMA Comment: DLDLREF RANGE: NEAR OR ABOVE OPTIMAL: 100-129 mg/dL BORDERLINE DLDLHIGH: 130-159 mg/dL HIGH: 160-189 mg/dL VERY HIGH: >=190 TRIG REF RANGE: BORDERLINE HIGH: 150-199 mg/dL HIGH: 200-499 mg/dL TRIG VERY HIGH: >=500 mg/dL CREA eGFR was calculated using the CKD-EPI 2020 equation. CHOL REF RANGE: BORDERLINE HIGH: 200-239 mg/dL HIGH: >=240 mg/dL Ordering Provider: BRANDY WITT CCA A Report Released Date/Time: May 01, 2023 08:58 AM Reporting Lab: [place] [phone] Performing Lab: [place] [phone] [facility] COMPREHE NSIVE METABOLI C PANEL CARBON DIOXIDE, TOTAL [MOLES/VOL UME] IN SERUM OR PLASMA 26 mmol/L - 04/27 Specimen Type: PLASMA Comment: DLDLREF RANGE: NEAR OR ABOVE OPTIMAL: 100-129 mg/dL BORDERLINE DLDLHIGH: 130-159 mg/dL HIGH: 160-189 mg/dL VERY HIGH: >=190 TRIG REF RANGE: BORDERLINE HIGH: 150-199 mg/dL HIGH: 200-499 mg/dL TRIG VERY HIGH: >=500 mg/dL CREA eGFR was calculated using the CKD-EPI 2020 equation. CHOL REF RANGE: BORDERLINE HIGH: 200-239 mg/dL HIGH: >=240 mg/dL Ordering Provider: BRANDY WITT CCA Report Released Date/Time: May 01, 2023 08:58 AM Reporting Lab: [place] [phone] Performing Lab: [place] [phone] [place] [address] COMPREHE NSIVE METABOLI C PANEL GLUCOSE [MASS/VOLU ME] IN SERUM OR PLASMA 103 mg/dL 74 - 100 04/27 H Specimen Type: PLASMA Comment: DLDLREF RANGE: NEAR OR ABOVE OPTIMAL: 100-129 mg/dL BORDERLINE DLDLHIGH: 130-159 mg/dL HIGH: 160-189 mg/dL VERY HIGH: >=190 TRIG REF RANGE: BORDERLINE HIGH: 150-199 mg/dL HIGH: 200-499 mg/dL TRIG VERY HIGH: >=500 mg/dL CREA eGFR was calculated using the CKD-EPI 2020 equation. CHOL REF RANGE: BORDERLINE HIGH: 200-239 mg/dL HIGH: >=240 mg/dL Ordering Provider: BRANDY WITT CCA Report Released Date/Time: May 01, 2023 08:58 AM Reporting Lab: [place] [phone] Performing Lab: [place] [phone] [place] [address] NSIVE METABOLI C PANEL PROTEIN [MASS/VOLU ME] IN SERUM OR PLASMA 7.2 g/dL 6.4 - 8.3 04/27 Specimen Type: PLASMA Comment: DLDLREF RANGE: NEAR OR ABOVE OPTIMAL: 100-129 mg/dL BORDERLINE DLDLHIGH: 130-159 mg/dL HIGH: 160-189 mg/dL VERY HIGH: >=190 TRIG REF RANGE: BORDERLINE HIGH: 150-199 mg/dL HIGH: 200-499 mg/dL TRIG VERY HIGH: >=500 mg/dL CREA eGFR was calculated using the CKD-EPI 2020 equation. CHOL REF RANGE: BORDERLINE HIGH: 200-239 mg/dL HIGH: >=240 mg/dL Ordering Provider: BRANDY WITT CCA Report Released Date/Time: May 01, 2023 08:58 AM Reporting Lab: [place] [phone] Performing Lab: [place] [phone] [place] [address] COMPREHE NSIVE METABOLI C PANEL SODIUM [MOLES/VOL UME] IN SERUM OR PLASMA 140 mmol/L 136 - 145 04/27 Specimen Type: PLASMA Comment: DLDLREF RANGE: NEAR OR ABOVE OPTIMAL: 100-129 mg/dL BORDERLINE DLDLHIGH: 130-159 mg/dL HIGH: 160-189 mg/dL VERY HIGH: >=190 TRIG REF RANGE: BORDERLINE HIGH: 150-199 mg/dL HIGH: 200-499 mg/dL TRIG VERY HIGH: >=500 mg/dL CREA eGFR was calculated using the CKD-EPI 2020 equation. CHOL REF RANGE: BORDERLINE HIGH: 200-239 mg/dL HIGH: >=240 mg/dL Ordering Provider: BRANDY WITT CCA Report Released Date/Time: May 01, 2023 08:58 AM Reporting Lab: [place] [phone] Performing Lab: [place] [phone] [place] [address] COMPREHE NSIVE METABOLI C PANEL CHLORIDE [MOLES/VOL UME] IN SERUM OR PLASMA 103 mmol/L 98 - 107 04/27 Specimen Type: PLASMA Comment: DLDLREF RANGE: NEAR OR ABOVE OPTIMAL: 100-129 mg/dL BORDERLINE DLDLHIGH: 130-159 mg/dL HIGH: 160-189 mg/dL VERY HIGH: >=190 TRIG REF RANGE: BORDERLINE HIGH: 150-199 mg/dL HIGH: 200-499 mg/dL TRIG VERY HIGH: >=500 mg/dL CREA eGFR was calculated using the CKD-EPI 2020 equation. CHOL REF RANGE: BORDERLINE HIGH: 200-239 mg/dL HIGH: >=240 mg/dL Ordering Provider: BRANDY WITT CCA Report Released Date/Time: May 01, 2023 08:58 AM Reporting Lab: [place] [phone] Performing Lab: [place] [phone] [place] [address] COMPREHE NSIVE METABOLI C PANEL BILIRUBIN. TOTAL [MASS/VOLU ME] IN SERUM OR PLASMA 0.6 mg/dL 0.2 - 1.2 04/27 Specimen Type: PLASMA Comment: DLDLREF RANGE: NEAR OR ABOVE OPTIMAL: 100-129 mg/dL BORDERLINE DLDLHIGH: 130-159 mg/dL HIGH: 160-189 mg/dL VERY HIGH: >=190 TRIG REF RANGE: BORDERLINE HIGH: 150-199 mg/dL HIGH: 200-499 mg/dL TRIG VERY HIGH: >=500 mg/dL CREA eGFR was calculated using the CKD-EPI 2020 equation. CHOL REF RANGE: BORDERLINE HIGH: 200-239 mg/dL HIGH: >=240 mg/dL Ordering Provider: BRANDY WITT CCA A Report Released Date/Time: May 01, 2023 08:58 AM Reporting Lab: [place] [phone] Performing Lab: [place] [phone] [place] [address] COMPREHE NSIVE METABOLI C PANEL POTASSIUM [MOLES/VOL UME] IN SERUM OR PLASMA 4.2 mmol/L 3.5 - 5.1 04/27 Specimen Type: PLASMA Comment: DLDLREF RANGE: NEAR OR ABOVE OPTIMAL: 100-129 mg/dL BORDERLINE DLDLHIGH: 130-159 mg/dL HIGH: 160-189 mg/dL VERY HIGH: >=190 TRIG REF RANGE: BORDERLINE HIGH: 150-199 mg/dL HIGH: 200-499 mg/dL TRIG VERY HIGH: >=500 mg/dL CREA eGFR was calculated using the CKD-EPI 2020 equation. CHOL REF RANGE: BORDERLINE HIGH: 200-239 mg/dL HIGH: >=240 mg/dL Ordering Provider: BRANDY WITT CCA A Report Released Date/Time: May 01, 2023 08:58 AM Reporting Lab: [place] [phone] Performing Lab: [place] [phone] [facility] COMPREHE NSIVE METABOLI C PANEL ANION GAP IN SERUM OR PLASMA 15.2 mmol/L 10 - 04/27 Specimen Type: PLASMA Comment: DLDLREF RANGE: NEAR OR ABOVE OPTIMAL: 100-129 mg/dL BORDERLINE DLDLHIGH: 130-159 mg/dL HIGH: 160-189 mg/dL VERY HIGH: >=190 TRIG REF RANGE: BORDERLINE HIGH: 150-199 mg/dL HIGH: 200-499 mg/dL TRIG VERY HIGH: >=500 mg/dL CREA eGFR was calculated using the CKD-EPI 2020 equation. CHOL REF RANGE: BORDERLINE HIGH: 200-239 mg/dL HIGH: >=240 mg/dL Ordering Provider: BRANDY WITT CCA Report Released Date/Time: May 01, 2023 08:58 AM Reporting Lab: [place] [phone] Performing Lab: [place] [phone] [facility] COMPREHE NSIVE METABOLI C PANEL GLOMERULAR FILTRATION RATE/1.73 SQ M.PREDICTE D [VOLUME RATE/AREA] IN SERUM, PLASMA OR BLOOD BY CREATININE -BASED FORMULA (CKD-EPI 2020) 119.0 mL/min 04/27 Specimen Type: PLASMA Comment: DLDLREF RANGE: NEAR OR ABOVE OPTIMAL: 100-129 mg/dL BORDERLINE DLDLHIGH: 130-159 mg/dL HIGH: 160-189 mg/dL VERY HIGH: >=190 TRIG REF RANGE: BORDERLINE HIGH: 150-199 mg/dL HIGH: 200-499 mg/dL TRIG VERY HIGH: >=500 mg/dL CREA eGFR was calculated using the CKD-EPI 2020 equation. CHOL REF RANGE: BORDERLINE HIGH: 200-239 mg/dL HIGH: >=240 mg/dL Ordering Provider: BRANDY WITT CCA Report Released Date/Time: May 01, 2023 08:58 AM Reporting Lab: [place] [phone] Performing Lab: [place] [phone] [facility] LIPID PROFILE CHOLESTERO L [MASS/VOLU ME] IN SERUM OR PLASMA 184 mg/dL <199 - 199 04/27 Specimen Type: PLASMA Comment: DLDLREF RANGE: NEAR OR ABOVE OPTIMAL: 100-129 mg/dL BORDERLINE DLDLHIGH: 130-159 mg/dL HIGH: 160-189 mg/dL VERY HIGH: >=190 TRIG REF RANGE: BORDERLINE HIGH: 150-199 mg/dL HIGH: 200-499 mg/dL TRIG VERY HIGH: >=500 mg/dL CREA eGFR was calculated using the CKD-EPI 2020 equation. CHOL REF RANGE: BORDERLINE HIGH: 200-239 mg/dL HIGH: >=240 mg/dL Ordering Provider: BRANDY WITT CCA A Report Released Date/Time: May 01, 2023 08:58 AM Reporting Lab: [place] [phone] Performing Lab: [place] [phone] LIPID PROFILE CHOLESTERO L IN LDL [MASS/VOLU ME] IN SERUM OR PLASMA BY DIRECT ASSAY 158 mg/dL <99 - 99 04/27 H Specimen Type: PLASMA Comment: DLDLREF RANGE: NEAR OR ABOVE OPTIMAL: 100-129 mg/dL BORDERLINE DLDLHIGH: 130-159 mg/dL HIGH: 160-189 mg/dL VERY HIGH: >=190 TRIG REF RANGE: BORDERLINE HIGH: 150-199 mg/dL HIGH: 200-499 mg/dL TRIG VERY HIGH: >=500 mg/dL CREA eGFR was calculated using the CKD-EPI 2020 equation. CHOL REF RANGE: BORDERLINE HIGH: 200-239 mg/dL HIGH: >=240 mg/dL Ordering Provider: BRANDY WITT CCA A Report Released Date/Time: May 01, 2023 08:58 AM Reporting Lab: [place] [phone] Performing Lab: [place] [phone] LIPID PROFILE CHOLESTERO L IN HDL [MASS/VOLU ME] IN SERUM OR PLASMA 33 mg/dL 60 04/27 L Specimen Type: PLASMA Comment: DLDLREF RANGE: NEAR OR ABOVE OPTIMAL: 100-129 mg/dL BORDERLINE DLDLHIGH: 130-159 mg/dL HIGH: 160-189 mg/dL VERY HIGH: >=190 TRIG REF RANGE: BORDERLINE HIGH: 150-199 mg/dL HIGH: 200-499 mg/dL TRIG VERY HIGH: >=500 mg/dL CREA eGFR was calculated using the CKD-EPI 2020 equation. CHOL REF RANGE: BORDERLINE HIGH: 200-239 mg/dL HIGH: >=240 mg/dL Ordering Provider: BRANDY WITT CCA A Report Released Date/Time: May 01, 2023 08:58 AM Reporting Lab: [place] [phone] Performing Lab: [place] [phone] [place] [address] LIPID PROFILE TRIGLYCERI DE [MASS/VOLU ME] IN SERUM OR PLASMA 99 mg/dL <149 - 149 04/27 Specimen Type: PLASMA Comment: DLDLREF RANGE: NEAR OR ABOVE OPTIMAL: 100-129 mg/dL BORDERLINE DLDLHIGH: 130-159 mg/dL HIGH: 160-189 mg/dL VERY HIGH: >=190 TRIG REF RANGE: BORDERLINE HIGH: 150-199 mg/dL HIGH: 200-499 mg/dL TRIG VERY HIGH: >=500 mg/dL CREA eGFR was calculated using the CKD-EPI 2020 equation. CHOL REF RANGE: BORDERLINE HIGH: 200-239 mg/dL HIGH: >=240 mg/dL Ordering Provider: BRANDY WITT CCA A Report Released Date/Time: May 01, 2023 08:58 AM Reporting Lab: [place] [phone] Performing Lab: [place] [phone] [facility] VALPROIC ACID VALPROATE [MASS/VOLU ME] IN SERUM OR PLASMA 113.9 ug/mL 50.0 - 100.0 04/27 H Specimen Type: PLASMA Comment: DLDLREF RANGE: NEAR OR ABOVE OPTIMAL: 100-129 mg/dL BORDERLINE DLDLHIGH: 130-159 mg/dL HIGH: 160-189 mg/dL VERY HIGH: >=190 TRIG REF RANGE: BORDERLINE HIGH: 150-199 mg/dL HIGH: 200-499 mg/dL TRIG VERY HIGH: >=500 mg/dL CREA eGFR was calculated using the CKD-EPI 2020 equation. CHOL REF RANGE: BORDERLINE HIGH: 200-239 mg/dL HIGH: >=240 mg/dL Ordering Provider: RBANDY WITT CCA A Report Released Date/Time: May 01, 2023 08:58 AM Reporting Lab: [place] [phone] Performing Lab: [place] [phone] [facility] HEMOGLOB IN A1C HEMOGLOBIN A1C/HEMOGL OBIN.TOTAL IN BLOOD 4.8 3.6 - 5.7 04/27 Specimen Type: BLOOD Comment: Values obtained from A1C measurement s can vary. For typical A1C assays, a reported value of 7.0 could actually be between 6.72 and 7.28 if measured by a reference method. A reported value of 9.0 could actually be between 8.73 and 9.27. Ref: http://www. ngsp.org/[place] Pdata.asp Ordering Provider: BRANDY WITT CCA A Report Released Date/Time: May 01, 2023 08:58 AM Reporting Lab: [place] [phone] Performing Lab: [place] [phone] CBC LEUKOCYTES [#/VOLUME] IN BLOOD BY AUTOMATED COUNT 6.5 10*3/uL 3.6 - 11.0 04/27 Specimen Type: BLOOD No comment entered. Ordering Provider: BRANDY WITT CCA A Report Released Date/Time: May 01, 2023 08:58 AM Reporting Lab: [place] [phone] Performing Lab: [place] [phone] CBC ERYTHROCYT ES [#/VOLUME] IN BLOOD BY AUTOMATED COUNT 5.15 10*6/uL 4.47 - 5.83 04/27 Specimen Type: BLOOD No comment entered. Ordering Provider: BRANDY WITT CCA A Report Released Date/Time: May 01, 2023 08:58 AM Reporting Lab: [place] [phone] Performing Lab: [place] [phone] [place] [address] CBC HEMOGLOBIN [MASS/VOLU ME] IN BLOOD 16.2 g/dL 13.6 - 17.4 04/27 Specimen Type: BLOOD No comment entered. Ordering Provider: BRANDY WITT CCA A Report Released Date/Time: May 01, 2023 08:58 AM Reporting Lab: [place] [phone] Performing Lab: [place] [phone] CBC HEMATOCRIT [VOLUME FRACTION] OF BLOOD BY AUTOMATED COUNT 48.1 40.0 - 51.0 04/27 Specimen Type: BLOOD No comment entered. Ordering Provider: BRANDY WITT CCA A Report Released Date/Time: May 01, 2023 08:58 AM Reporting Lab: [address] [phone] Performing Lab: [place] [phone] [facility] CBC MCV [ENTITIC VOLUME] BY AUTOMATED COUNT 93.4 fL 80.0 - 96.0 04/27 Specimen Type: BLOOD No comment entered. Ordering Provider: BRANDY WITT CCA Report Released Date/Time: May 01, 2023 08:58 AM Reporting Lab: [place] [phone] Performing Lab: [place] [phone] [facility] CBC MCH [ENTITIC MASS] BY AUTOMATED COUNT 31.5 pg 27.0 - 31.0 04/27 H Specimen Type: BLOOD No comment entered. Ordering Provider: BRANDY WITT CCA Report Released Date/Time: May 01, 2023 08:58 AM Reporting Lab: [place] [phone] Performing Lab: [place] [phone] [place] [address] CBC MCHC [MASS/VOLU ME] BY AUTOMATED COUNT 33.8 g/dL 31.5 - 36.5 04/27 Specimen Type: BLOOD No comment entered. Ordering Provider: BRANDY WITT CCA Report Released Date/Time: May 01, 2023 08:58 AM Reporting Lab: [place] [phone] Performing Lab: [place] [phone] [place] [address] CBC PLATELETS [#/VOLUME] IN BLOOD BY AUTOMATED COUNT 348 10*3/uL 150 - 400 04/27 Specimen Type: BLOOD No comment entered. Ordering Provider: BRANDY WITT CCA Report Released Date/Time: May 01, 2023 08:58 AM Reporting Lab: [place] [phone] Performing Lab: [place] [phone] [facility] CBC LYMPHOCYTE S/100 LEUKOCYTES IN BLOOD BY AUTOMATED COUNT 48.8 21.0 - 51.0 04/27 Specimen Type: BLOOD No comment entered. Ordering Provider: EDUAR,BRANDY CCA A Report Released Date/Time: May 01, 2023 08:58 AM Reporting Lab: [place] [phone] Performing Lab: [place] [phone] [facility] CBC MONOCYTES/ 100 LEUKOCYTES IN BLOOD BY AUTOMATED COUNT 5.2 4.0 - 8.0 04/27 Specimen Type: BLOOD No comment entered. Ordering Provider: BRANDY WITT CCA A Report Released Date/Time: May 01, 2023 08:58 AM Reporting Lab: [address] [phone] Performing Lab: [place] [phone] [facility] CBC NUCLEATED ERYTHROCYT ES/100 LEUKOCYTES [RATIO] IN BLOOD BY MANUAL COUNT 0.2 /100{WBC s} 04/27 Specimen Type: BLOOD No comment entered. Ordering Provider: BRANDY WITT CCA A Report Released Date/Time: May 01, 2023 08:58 AM Reporting Lab: [place] [phone] Performing Lab: [place] [phone] [facility] CBC ERYTHROCYT E DISTRIBUTI ON WIDTH [RATIO] BY AUTOMATED COUNT 13.3 11.2 - 15.8 04/27 Specimen Type: BLOOD No comment entered. Ordering Provider: BRANDY WITT CCA A Report Released Date/Time: May 01, 2023 08:58 AM Reporting Lab: [place] [phone] Performing Lab: [place] [phone] [facility] CBC NEUTROPHIL S/100 LEUKOCYTES IN BLOOD BY AUTOMATED COUNT 42.8 54.0 - 78.0 04/27 L Specimen Type: BLOOD No comment entered. Ordering Provider: BRANDY WITT CCA A Report Released Date/Time: May 01, 2023 08:58 AM Reporting Lab: [address] [phone] Performing Lab: [address] [phone] [facility] CBC EOSINOPHIL S/100 LEUKOCYTES IN BLOOD BY AUTOMATED COUNT 2.9 0.0 - 3.0 04/27 Specimen Type: BLOOD No comment entered. Ordering Provider: BRANDY WITT CCA A Report Released Date/Time: May 01, 2023 08:58 AM Reporting Lab: [place] [phone] Performing Lab: [place] [phone] [facility] CBC BASOPHILS/ 100 LEUKOCYTES IN BLOOD BY AUTOMATED COUNT 0.3 0.0 - 3.0 04/27 Specimen Type: BLOOD No comment entered. Ordering Provider: BRANDY WITT CCA A Report Released Date/Time: May 01, 2023 08:58 AM Reporting Lab: [place] [phone] Performing Lab: [place] [phone] CBC LYMPHOCYTE S [#/VOLUME] IN BLOOD BY AUTOMATED COUNT 3.2 10*3/uL 0.8 - 5.0 04/27 Specimen Type: BLOOD No comment entered. Ordering Provider: BRANDY WITT CCA A Report Released Date/Time: May 01, 2023 08:58 AM Reporting Lab: [place] [phone] Performing Lab: [place] [phone] CBC NEUTROPHIL S [#/VOLUME] IN BLOOD 2.8 10*3/uL 1.9 - 8.6 04/27 Specimen Type: BLOOD No comment entered. Ordering Provider: BRANDY WITT CCA A Report Released Date/Time: May 01, 2023 08:58 AM Reporting Lab: [place] [phone] Performing Lab: [place] [phone] [facility] CBC BASOPHILS [#/VOLUME] IN BLOOD BY AUTOMATED COUNT 0.0 10*3/uL 0.0 - 0.3 04/27 Specimen Type: BLOOD No comment entered. Ordering Provider: BRANDY WITT CCA A Report Released Date/Time: May 01, 2023 08:58 AM Reporting Lab: [place] [phone] Performing Lab: [place] [phone] [place] [address] CBC MONOCYTES [#/VOLUME] IN BLOOD BY AUTOMATED COUNT 0.3 10*3/uL 0.1 - 0.9 04/27 Specimen Type: BLOOD No comment entered. Ordering Provider: BRANDY WITT CCA A Report Released Date/Time: May 01, 2023 08:58 AM Reporting Lab: [place] [phone] Performing Lab: [address] CBC EOSINOPHIL S [#/VOLUME] IN BLOOD BY AUTOMATED COUNT 0.2 10*3/uL 0.0 - 0.3 04/27 Specimen Type: BLOOD No comment entered. Ordering Provider: BRANDY WITT CCA A Report Released Date/Time: May 01, 2023 08:58 AM Reporting Lab: [place] [id number] Performing Lab: [address] CBC PLATELET MEAN VOLUME [ENTITIC VOLUME] IN BLOOD BY AUTOMATED COUNT 8.3 fL 7.4 - 11.4 04/27 Specimen Type: BLOOD No comment entered. Ordering Provider: BRANDY WITT CCA A Report Released Date/Time: May 01, 2023 08:58 AM Reporting Lab: [place] [id number] Performing Lab: [address] TSH THYROTROPI N [UNITS/VOL UME] IN SERUM OR PLASMA BY DETECTION LIMIT <= 0.005 MIU/L 1.789 u[IU]/mL 0.55 - 4.78 04/22 Specimen Type: PLASMA No comment entered. Ordering Provider: BRANDY WITT CCA A Report Released Date/Time: Apr 22, 2023 09:46 AM Reporting Lab: [place] [id number] Performing Lab: [address] URINALYS IS SPECIFIC GRAVITY OF URINE 1.024 1.016 - 1.022 04/22 H Specimen Type: URINE No comment entered. Ordering Provider: BRANDY WITT CCA A Report Released Date/Time: Apr 22, 2023 09:46 AM Reporting Lab: [place] [phone] Performing Lab: [place] [phone] [place] [address] URINALYS IS GLUCOSE [MASS/VOLU ME] IN URINE BY TEST STRIP Negative mg/dL <69 - 69 04/22 Specimen Type: URINE No comment entered. Ordering Provider: BRANDY WITT CCA A Report Released Date/Time: Apr 22, 2023 09:46 AM Reporting Lab: [place] [phone] Performing Lab: [place] [phone] URINALYS IS PROTEIN [MASS/VOLU ME] IN URINE BY TEST STRIP Negative mg/dL <29 - 29 04/22 Specimen Type: URINE No comment entered. Ordering Provider: BRANDY WITT CCA A Report Released Date/Time: Apr 22, 2023 09:46 AM Reporting Lab: [place] [phone] Performing Lab: [place] [phone] URINALYS IS PH OF URINE BY TEST STRIP 5.5 4.6 - 8.0 04/22 Specimen Type: URINE No comment entered. Ordering Provider: BRANDY WITT CCA A Report Released Date/Time: Apr 22, 2023 09:46 AM Reporting Lab: [place] [phone] Performing Lab: [place] [phone] URINALYS IS LEUKOCYTES [#/AREA] IN URINE SEDIMENT BY MICROSCOPY HIGH POWER FIELD <1/[HPF] 1 - 5 04/22 L Specimen Type: URINE No comment entered. Ordering Provider: BRANDY WITT CCA A Report Released Date/Time: Apr 22, 2023 09:46 AM Reporting Lab: [place] [phone] Performing Lab: [place] [phone] URINALYS IS BACTERIA [PRESENCE] IN URINE SEDIMENT BY LIGHT MICROSCOPY Rare 04/22 Specimen Type: URINE No comment entered. Ordering Provider: BRANDY WITT CCA A Report Released Date/Time: Apr 22, 2023 09:46 AM Reporting Lab: [address] [phone] Performing Lab: [place] [phone] [facility] URINALYS IS ERYTHROCYT ES [#/AREA] IN URINE SEDIMENT BY MICROSCOPY HIGH POWER FIELD <1/[HPF] 1 - 5 04/22 L Specimen Type: URINE No comment entered. Ordering Provider: BRADNY WITT CCA A Report Released Date/Time: Apr 22, 2023 09:46 AM Reporting Lab: [place] [phone] Performing Lab: [place] [phone] [facility] URINALYS IS NITRITE [PRESENCE] IN URINE BY TEST STRIP Negative 04/22 Specimen Type: URINE No comment entered. Ordering Provider: BRANDY WITT CCA A Report Released Date/Time: Apr 22, 2023 09:46 AM Reporting Lab: [address] [phone] Performing Lab: [place] [phone] [place] [address] URINALYS IS LEUKOCYTE ESTERASE [PRESENCE] IN URINE BY TEST STRIP Negative <74 - 74 04/22 Specimen Type: URINE No comment entered. Ordering Provider: BRANDY WITT CCA A Report Released Date/Time: Apr 22, 2023 09:46 AM Reporting Lab: [address] [phone] Performing Lab: [place] [phone] [facility] URINALYS IS CLARITY OF URINE Clear 04/22 Specimen Type: URINE No comment entered. Ordering Provider: BRANDY WITT CCA A Report Released Date/Time: Apr 22, 2023 09:46 AM Reporting Lab: [address] [phone] Performing Lab: [place] [phone] [facility] URINALYS IS MUCUS [PRESENCE] IN URINE SEDIMENT BY LIGHT MICROSCOPY Present 04/22 Specimen Type: URINE No comment entered. Ordering Provider: BRANDY WITT CCA A Report Released Date/Time: Apr 22, 2023 09:46 AM Reporting Lab: [address] [phone] Performing Lab: [place] [phone] [facility] URINALYS IS URINE MICROSCOPI C DONE 04/22 Specimen Type: URINE No comment entered. Ordering Provider: BRANDY WITT CCA A Report Released Date/Time: Apr 22, 2023 09:46 AM Reporting Lab: [address] [phone] Performing Lab: [place] [phone] URINALYS IS BILIRUBIN. TOTAL [MASS/VOLU ME] IN URINE BY TEST STRIP Negative mg/dL <0.4 - 0.4 04/22 Specimen Type: URINE No comment entered. Ordering Provider: BRANDY WITT CCA A Report Released Date/Time: Apr 22, 2023 09:46 AM Reporting Lab: [place] [phone] Performing Lab: [place] [phone] [place] [address] URINALYS IS HEMOGLOBIN [PRESENCE] IN URINE BY TEST STRIP Negative mg/dL <0.05 - 0.05 04/22 Specimen Type: URINE No comment entered. Ordering Provider: BRANDY WITT CCA A Report Released Date/Time: Apr 22, 2023 09:46 AM Reporting Lab: [place] [phone] Performing Lab: [place] [phone] [facility] URINALYS IS UROBILINOG EN [MASS/VOLU ME] IN URINE Negative mg/dL <1 - 1 04/22 Specimen Type: URINE No comment entered. Ordering Provider: BRANDY WITT CCA A Report Released Date/Time: Apr 22, 2023 09:46 AM Reporting Lab: [address] [address] Performing Lab: [place] [phone] [facility] URINALYS IS KETONES [MASS/VOLU ME] IN URINE BY TEST STRIP Negative mg/dL <9 - 9 04/22 Specimen Type: URINE No comment entered. Ordering Provider: BRANDY WITT CCA Report Released Date/Time: Apr 22, 2023 09:46 AM Reporting Lab: [place] [phone] Performing Lab: [place] [phone] [facility] URINALYS IS COLOR OF URINE Light-Ye llow 04/22 Specimen Type: URINE No comment entered. Ordering Provider: BRANDY WITT CCA A Report Released Date/Time: Apr 22, 2023 09:46 AM Reporting Lab: [place] [phone] Performing Lab: [place] [phone] [facility] HEMOGLOB IN A1C HEMOGLOBIN A1C/HEMOGL OBIN.TOTAL IN BLOOD 5.2 3.6 - 5.7 04/22 Specimen Type: BLOOD Comment: Values obtained from A1C measurement s can vary. For typical A1C assays, a reported value of 7.0 could actually be between 6.72 and 7.28 if measured by a reference method. A reported value of 9.0 could actually be between 8.73 and 9.27. Ref: http://www. ngsp.org/[place] Pdata.asp Ordering Provider: BRANDY WITT CCA Report Released Date/Time: Apr 22, 2023 09:46 AM Reporting Lab: [place] [phone] Performing Lab: [place] [phone] [facility] Vital Signs Combined list of inpatient and outpatient Vital Signs from Department of Defense and Veterans Affairs, ranging from 12 months to all on record, depending upon the facility. Vital Sign Value Date Comments Source WEIGHT 274.6 06/29/2024 08:13:00 [facility] BMI 38 kg/m2 06/29/2024 08:13:00 [facility] HEIGHT 71 06/29/2024 08:13:00 [facility] WEIGHT 267 03/18/2024 09:02:03 [facility] BMI 37 kg/m2 03/18/2024 09:02:03 [facility] WEIGHT 268 01/29/2024 08:32:48 [facility] BMI 37 kg/m2 01/29/2024 08:32:48 [facility] Encounters Combined list of: 1) Encounters from Department of [facility] Affairs facilities going backup to the last 18 months, not all [place] inpatient encounters are included; 2) Encounters from the Department of Defense facilities going backup to 280 months. Location Location Details Encounter Type Encounter Number Reason For Visit Attending Provider ADM Date DC Date Status Disposition Source [place] [facility] [address]([facility]) OUTPATIENT [id number] JOSIAH MARTÍNEZ 01/11 Released w/o Limitations [facility] [place] [address]) [employer]([facility]) OUTPATIENT [id number] severe sore throat DARIA BENAVIDES 03/02 Released w/o Limitations [employer]([facility]) [employer]([facility]) OUTPATIENT [id number] possibl e pulled muscle - below ribs JUNI ZHOU 04/15 Released with Work/Duty Limitations [employer]([facility]) [employer]([facility]) TELE CONSULT [id number] F/u CXR ERIKA GARBER 04/15 [employer]([facility]) [facility] MED NUTRITION INDIV SUBSEQ [id number] Diagnos is: ICD-10- CM Z68.41 Body mass index [BMI] 40.0-44 .9, adult LIOR RAMOS 06/19 [facility] [place] [facility] [employer] PRESSURE CPAP [id number] Diagnos is: ICD-10- CM G47.33 Obstruc tive sleep apnea (adult) ([facility]) EBER CLEMENTS 06/21 JOE P[facility]OC [facility] OFFICE O/P NEW LOW 30-44 MIN [id number] Diagnos is: ICD-10- CM 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, 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, w/o stat epi KOTAGAL, JIN 06/24 [facility] Outpatient Encounter [id number] Diagnos is: ICD-10- CM G47.33 Obstruc tive sleep apnea (adult) ([facility]) EBER CLEMENTS H 07/01 [facility] MED NUTRITION INDIV SUBSEQ [id number] Diagnos is: ICD-10- CM Z68.41 Body mass index [BMI] 40.0-44 .9, adult LIOR RAMOS M 08[place] [facility] Outpatient Encounter [id number] 08/14 [facility] MED NUTRITION INDIV SUBSEQ [id number] Diagnos is: ICD-10- CM Z68.41 Body mass index [BMI] 40.0-44 .9, adult LIOR RAMOS M 09/11 [place] [facility] Outpatient Encounter [id number] 10/06 [facility] MED NUTRITION INDIV SUBSEQ [id number] Diagnos is: ICD-10- CM Z68.41 Body mass index [BMI] 40.0-44 .9, adult LIOR RAMOS M 10/14 [place] [facility] MED NUTRITION INDIV SUBSEQ [id number] Diagnos is: ICD-10- CM Z68.38 Body mass index [BMI] 38.0-38 .9, adult LIOR RAMOS M 11/12 [place] [facility] Outpatient Encounter [id number] 12/03 [facility] [place] En[place] [id number] 01/12 [facility] [place] [facility] [id number] 01/13 [facility] [place] En[place] [id number] 01/19 [facility] MED NUTRITION INDIV SUBSEQ [id number] Diagnos is: ICD-10- CM 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 LISA Molina 01/28 [facility] MED NUTRITION INDIV SUBSEQ [id number] Diagnos is: ICD-10- CM 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 LISA Molina 03/18 [facility] Outpatient Encounter [id number] 03/19 [facility] QNHP OL DIG ASSMT&MGMT 11-20 [id number] Diagnos is: ICD-10- CM Z79.899 Other retirement (curren t) drug therapy MAGI WINN JONNA N 04/20 [facility] QNHP OL DIG ASSMT&MGMT 11-20 [id number] Diagnos is: ICD-10- CM E66.9 Obesity , unspeci fied JOSE FOSTER RDON C 04/21 [facility] [place] En[place] [id number] SOLOMON GARCIA ART L 04/21 [facility] [place] En[place] [id number] MAGI WINN JONNA N 05/05 [facility] Outpatient Encounter [id number] HEBER DIXON 06/22 [facility] Outpatient Encounter [id number] 06/22 [facility] OFFICE O/P EST MOD 30 MIN [id number] Diagnos is: ICD-10- CM 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,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,w /o stat epi MATEEVA-JORGE LUIS COLE MD 06/22 [facility] Outpatient Encounter [id number] GRAHAMAVERY Benedict 06/23 [facility] [place] En[place] [id number] 06/29 [facility] OFFICE O/P EST MOD 30 MIN [id number] Diagnos is: ICD-10- CM Z23 Encount er for immuniz lisette TYRELL WITT 06/29 [facility] Outpatient Encounter [id number] 07/24 [facility] OFF/OP CNSLTJ NEW/EST LOW 30 [id number] Diagnos is: ICD-10- CM Z79.899 Other intermission coordinator (curren t) drug therapy JOSE,SOLOMON ART L 07/24 [facility] Outpatient Encounter [id number] [id number] 07/29 [facility] NQ OL DIG ASSMT&MGMT 21+ [id number] [id number] Diagnos is: ICD-10- CM E66.9 Obesity , unspeci fiMAGI Nino 08/21 [facility] OL DIG ASSMT&MGMT 5-10 [id number] [id number] Diagnos is: ICD-10- CM E66.9 Obesity , unspeci fiIsaac Grider 08/24 [facility] MED NUTRITION INDIV SUBSEQ [id number] Diagnos is: ICD-10- CM Z68.38 Body mass index [BMI] 38.0-38 .9, adult LIOR RAMOS M 09/16 [place] [facility] MED NUTRITION INDIV SUBSEQ [id number] [id number] Diagnos is: ICD-10- CM E66.812 Obesity , class 2 PLATACHANOLISA 09/25 [place] [facility] Outpatient Encounter [id number] 10/06 [facility] MED NUTRITION INDIV SUBSEQ [id number] [id number] Diagnos is: ICD-10- CM E66.9 Obesity , unspeci fied LIOR RAMOS M 10/21 [facility] Outpatient Encounter [id number] [id number] 10/21 [facility] [place] En[place] [id number] [id number] 11/10 [facility] [place] En[place] [id number] [id number] 11/18 [facility] [place] En[place] [id number] [id number] 11/19 [facility] Procedures Combined list of: 1) Procedures from Department of Veterans Affairs facilities going back up to thelast 18 months, not all VA non-surgical procedures are included; 2) All procedures from the Department of Defense facilities. Procedure Procedure Type Code Date Perfomer Comments Formerly [facility] e PSYCHIATRIC DIAGNOSTIC INTERVIEW EXAMINATION 04/12/2008 [facility] Spectacles Services Fitting Monofocals (Not For Aphakia) Spectacles Services Fitting Monofocals (Not For Aphakia) 73132 01/12/2008 JOSIAH MARTÍNEZ Screening Test Of Visual Acuity, Quantitative, Bilateral Screening Test Of Visual Acuity, Quantitative, Bilateral 13137 01/12/2008 JOSIAH MARTÍNEZ [facility] Social History Combined list of available smoking, tobacco, and other social history from Department of Defense and Veterans Affairs facilities. Social History Type Response Date Comment Sourc e Tobacco smoking status NHIS VA-TOBACCO USE FORMER OTHER TYPE 06/29/2024 Quit at 17 JESSE MONTERO History of tobacco use VA-TOBACCO USE FO RMER CIGARETTES 06/29/2024 JESSE MONTERO History of tobacco use VA-TOBACCO NEVER USED 05/01/2023 JESSE PORTER History of tobacco use VA-TOBACCO FORMER USER 04/25/2022 JESSE PORTER History of tobacco use VA-TOBACCO NEVER USED 04/21/2021 JESSE PORTER History of tobacco use VA-TOBACCO NEVER USED 07/02/2019 JESSE [facility] This section is an empty social history section. DoD Plan of Care List of future care activities from Department of Veterans Affairs facilities. Additional future care activities may be listed in the Assessment and Plan section. Date/Time Care Activity Care Activity Detail Facili ty 12/09/2024 AMBULATORY - NONE AMBULATORY - NONE [facility]
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
[2024-12-09 07:13] LABS: Basophils Absolute Auto 0.1 10^3/uL (0.0-0.1); Basophils Percent Auto 0.6 % (0.2-2.0); Eosinophils Absolute Auto 0.2 10^3/uL (0.0-0.7); Eosinophils Percent Auto 2.7 % (0.9-7.0); Hematocrit 45.2 % (42.0-54.0); Hemoglobin 15.9 g/dL (14.0-18.0); Immature Granulocytes Abs Auto 0.02 10^3/uL (0.00-0.03); Immature Granulocytes Pct Auto 0.3 % (0.0-0.5); Lymphocytes Absolute Auto 2.7 10^3/uL (1.2-3.8); Lymphocytes Percent Auto 34.2 % (20.5-60.0); Mean Corpuscular HGB Conc 35.2 g/dL (29.9-35.2); Mean Corpuscular Hemoglobin 32.5 pg (25.9-34.0); Mean Corpuscular Volume 92.4 fL (80.0-94.0); Mean Platelet Volume 9.5 fL (9.5-13.5); Monocytes Absolute Auto 0.7 10^3/uL (0.3-0.8); Monocytes Percent Auto 8.9 % (1.7-12.0); Neutrophils Absolute Auto 4.2 10^3/uL (1.4-6.5); Neutrophils Percent Auto 53.3 % (43.0-75.0); Platelet Count 353 10^3/uL (150-450); Red Blood Count 4.89 10^6/uL (4.70-6.10); Red Cell Distribution Width 12.1 % (11.0-15.0); White Blood Count 7.8 10^3/uL (4.0-11.0)
[2024-12-09] MEDS: LACTATED RINGER'S SOLUTION 1,000 ML 50 ML IV ×2 (07:42→10:30)
[2024-12-09] MEDS: BUPIVACAINE LIPOSOME/PF 266 MG/20 ML VIAL INJ (09:25)
[2024-12-09] MEDS: 0.9 % SODIUM CHLORIDE 10 ML VIAL INJ (09:25)
[2024-12-09] MEDS: BUPIVACAINE HCL 0.25% PF 25 MG/10 ML VIAL INJ (09:25)
[2024-12-09] MEDS: CEFAZOLIN SODIUM 2 GM/50 ML D5W PREMIX IV (09:27)
--- NOTE | 2024-12-09 09:27 | PC.NURSE ---
Tap block performed time out 914 Dr. Richmond and Isaiah Durbin.RN 914 2 mg versed, 4 mg Zofran, 50 of fentynal given 917 cleansed with chloroprep , looking with ultra sound for injection site 918 needle inserted 922 tap block completed.
[2024-12-09] MEDS: CEFAZOLIN SODIUM 1,000 MG in 0.9 % SODIUM CHLORIDE 10 ML 10 MG IRR (10:00)
[2024-12-09] MEDS: ONDANSETRON PF 4 MG/2 ML VIAL IV (11:43)
--- NOTE | 2024-12-09 11:58 | PC.NURSE ---
Emesis of yellow bile; medicated with Zofran IV as ordered
--- NOTE | 2024-12-09 12:00 | PC.NURSE ---
No further c/o nausea
[2024-12-09] MEDS: HALOPERIDOL LACTATE 5 MG/ML VIAL IV (12:30)
--- NOTE | 2024-12-09 12:35 | PC.NURSE ---
Emesis of yellow bile; medicated as ordered for nausea
[2024-12-09] MEDS: LACTATED RINGER'S SOLUTION 1,000 ML 125 ML IV (13:17)
--- NOTE | 2024-12-09 13:33 | PC.NURSE ---
Up to the bathroom and voids clear yellow without difficulty. No c/o nausea
== END 2024-12-09 13:39 | disposition home or self-care (01) ==
PROVIDERS: Anesthesiology; Visit Provider Surgery
PROC: (CPT 830; principal; 2024-12-09 08:30)
DX: K40.90 Unilateral inguinal hernia, without obstruction or gangrene, not specified as recurrent (principal); G40.909 Epilepsy, unspecified, not intractable, without status epilepticus; G47.33 Obstructive sleep apnea (adult) (pediatric)
CPT/HCPCS: 49505; 36415; 64488; 85025; 88302; C1781; J0131; J0665; J0690; J1100; J1630; J1885; J2250; J2405; J2704; J3010